=== PATIENT | male | born 1950 | race Caucasian/White ===

== ENCOUNTER 2019-10-11 13:37 | Outpatient (CLI) | payer MEDICARE, SELFPAY ==
--- NOTE | 2019-10-11 14:11 | CT_ITS ---
WS: [id number] CT NECK WITH CONTRAST HISTORY: CERVICAL Lymphadenopathy, difficulty Breathing, change IN VOICE. TECHNIQUE: Contiguous 5 mm axial images are performed through the neck with intravenous contrast. Sag ittal and coronal reformats are also submitted. All CT scans at [facility] use at least o ne of these dose optimization techniques: automated exposure control; mA and/or kV adjustment per pat ient size (includes targeted exams where dose is matched to clinical indication); or iterative recons truction. CONTRAST: CONTRAST: Omnipaque 300; 95 mL IV. DLP: 2938.79 mGycm COMPARISON: None available. Large soft tissue mass with enhancement beginning in the posterior RIGHT tongue base and extending ov er a length of 7.7 cm to the false vocal cord and aryepiglottic fold. Soft tissue mass measures 7.7 c m in length with a maximum anterior posterior diameter of 3.6 cm in transverse diameter of 2.8 cm. Ma ss extends into the LEFT supraglottic airway and the larynx. Mass extends anteriorly into the preepig lottic space and just to the LEFT of midline. Mass extends into the RIGHT piriform sinus and the fals e and true vocal cord on the RIGHT. Approximately 50% narrowing of the airway at the level of the epi glottis. No definite invasion into the cricoid or hyoid bone. Largest lymph node is hyperemic in the RIGHT jugulodigastric region measuring 10 mm in short axis di ameter. Loss of the normal fatty hilum. There are additional level 2 and level 3 lymph nodes which ar e not significantly enlarged although the shape is more rounded than typically noted. No LEFT cervica l chain lymph nodes. Visualized portions of the skull base demonstrate no abnormalities. Orbits and globes are within norm al limits. No soft tissue masses. Mild atherosclerosis of the intracranial carotid arteries. Visualized paranasal sinuses and mastoid air cells are normal. Lung apices are clear. Notified Michael Dumont MD at 10/11/2019 3:15 PM. Not available but the report is made available for review. CT/CT neck w con* [id number] IMPRESSION: 1. Large enhancing mass centered in the RIGHT larynx, involving the supraglott ic and subglottic airway. Mass extends from the RIGHT tongue base over length o f 7.7 cm to the vocal cords. Mass extends across the midline into the preepiglo ttic space. Mass in its entirety measures 7.7 x 3.6 x 2.8 cm.. 2. Mild narrowing of the larynx at the level of the epiglottis. 3. RIGHT level 2 and level 3 adenopathy. Largest, most abnormal appearing lymp h node is on the RIGHT jugulodigastric region. 4. Recommend PET/CT imaging.
[2019-10-11 14:41] LABS: Blood Urea Nitrogen 6 mg/dL (8-23); Glomerular Filtration Rate 95.6 mL/min (90-130)
[2019-10-11] MEDS: iohexol 300 mg/mL 100 mL Btl IV (14:47)
== END 2019-10-11 13:38 | disposition home or self-care (01) ==
PROVIDERS: Family Provider Family Medicine; PCP Family Medicine; Visit Provider Family Medicine
DX: R06.00 Dyspnea, unspecified (principal); R49.9 Unspecified voice and resonance disorder; R59.0 Localized enlarged lymph nodes; J38.6 Stenosis of larynx
CPT/HCPCS: 70491; 82565; 84520; Q9967

== ENCOUNTER → 2019-10-12 14:45 | Outpatient (BNVA) | payer MEDICARE, SELFPAY | PROVIDERS: Family Provider Family Medicine; PCP Family Medicine; Referring Provider Family Medicine; Visit Provider Otolaryngology | DX: D37.05 Neoplasm of uncertain behavior of pharynx (principal) | CPT/HCPCS: 99205; 99214 ==

== ENCOUNTER 2019-10-17 05:51 | Day surgery (SDC) | payer MEDICARE, SELFPAY ==
[2019-10-14 12:58] VITALS: BMI 24.1
[2019-10-17] VITALS (8 sets, daily range): BP systolic 138–158; BP diastolic 72–91; PULSE 70–88; RESP 11–21; TEMP 36.2–36.7; O2SAT 96–100
--- NOTE | 2019-10-17 06:29 | P.ANESASSM_ITS ---
Pre-Anesthetic Assessment Pre-Anesthetic Assessment: Height/Weight: Height 1.83 m Weight 80.739 kg Temp Pulse Resp BP Pulse Ox 97.1 F L 77 20 H 147/76 98 10/17/19 06:19 10/17/19 06:19 10/17/19 06:19 10/17/19 06:19 10/17/19 06:19 Preop Diagnosis: neoplasm hypopharynx Proposed Procedure: Operation Date: 10/17/19 07:00 Proposed Procedures p Direct Laryngoscopy with biopsy [id number] D37.05(Not Applicable) - Marquis Macedo MD s EGD(Not Applicable) - Marquis Macedo MD s Bronchoscopy(Not Applicable) - Marquis Macedo MD s Fine Needle Biopsy right neck(Not Applicable) - Marquis Macedo MD Last intake: Intake Last Liquid Date 10/16/19 Last Liquid Time 23:45 Last Solid Date 10/16/19 Last Solid Time 16:00 Social: Social History: No alcohol and No tobacco Exam: Pre-Anes Outpt Exam: alert, oriented x 3, clear to auscultation serjio aterally and regular rate & rhythm Airway: Submandibular: WNL Cervical ROM: WNL MP: 2 Dentition: Other (poor dentation) History/ROS: No significant history except as noted Pulmonary: Pulmonary: None reported CV/HEM: CV/HEM: Afib (well controlled) : : None reported Hepatic: Hepatic: None reported GI: GI: None reported Metabolic: Metabolic: None reported Musc/skel: Musc/skel: OA/DJD Neuropsych: Neuropsych: None reported Anesthetic Plan: ASA status: 2 Anesthesia: Anesthesia Evaluation and General Risk of > 500 ml blood loss (7ml/kg in children): No PFSH Anesthesia PFSH: Medical History (Updated 10/17/19 @ 06:30 by Bruce Infante MD) History of atrial fibrillation Neoplasm of uncertain behavior of hypopharynx Surgical History (Updated 10/17/19 @ 06:30 by Bruce Infante MD) H/O knee surgery H/O shoulder surgery Family History Other Cancer Social History Smoking and tobacco status: never smoked Alcohol intake: current Alcohol intake frequency: few times a week Data Anesthesia Cardiac Studies: No Data to Display
--- NOTE | 2019-10-17 06:49 | PM.HPUD ---
H&P update H&P Update: DATE OF SURGERY/PROCEDURE: 10/17/19 DATE H&P PERFORMED: 10/12/19 H&P UPDATE INFORMATION: H&P completed within last 30 days and No changes to prior documentation PREOP DIAGNOSIS: neoplasm hypopharynx PLANNED PROCEDURE: Operation Date: 10/17/19 07:00 Proposed Procedures p Direct Laryngoscopy with biopsy [id number] D37.05(Not Applicable) - Marquis Macedo MD s EGD(Not Applicable) - Marquis Macedo MD s Bronchoscopy(Not Applicable) - Marquis Macedo MD s Fine Needle Biopsy right neck(Not Applicable) - Marquis Macedo MD Full H&P Perinent History: Medical/Surgical History: Medical History (Updated 10/17/19 @ 06:30 by Bruce Infante MD) History of atrial fibrillation Neoplasm of uncertain behavior of hypopharynx Family History: Family History (Updated 10/12/19 @ 15:17 by Candice Verdugo LPN) Other Cancer Social History: Social History Smoking and tobacco status: never smoked Alcohol intake: current Alcohol intake frequency: few times a week
--- NOTE | 2019-10-17 06:51 | P.OP_ITS ---
Operative Report Date of procedure: October 17, 2019 Pre-op Diagnosis: neoplasm hypopharynx Post-op Diagnosis: pending Procedure Done: Esophagogastroduodenoscopy with biopsy distal esophagus, flexible fiberoptic bronchoscopy, MicroDirect laryngoscopy with biopsy, fine- needle aspiration right level II neck mass Pathology: Distal esophagus, right oropharynx, fine-needle aspiration right neck Surgeon: Marquis Macedo Anesthesia: General Complications: None Findings: 7 cm right oropharyngeal/hypopharyngeal mass Condition: stable Disposition: PACU Brief History: Arpan is a 69-year-old male with a two-month history of a right neck mass. I discussed the goals risks and alternatives and informed consent was obtained to proceed with surgical evaluation. Procedure: The patient was taken to the operating room and under satisfactory general endotracheal anesthesia the bronchoscope was introduced into the trachea. Right and left bronchopulmonary segments 1 through 10 were examined. No endobronchial lesions were identified. The esophagoscope was introduced into the post cricoid area. The esophagus stomach and duodenum were examined. A 1.5 cm erosion was present at the GE junction. The remainder of the exam was unremarkable. The laryngoscope was used to examine the oropharynx hypopharynx and larynx. The exam was significant for a exophytic right oropharynx/hypopharyngeal mass. This extended to the base of tongue lateral pharyngeal wall and tonsil. It measured approximately 1 cm in greatest dimension. 4 biopsy specimens were taken. Hemostasis was obtained with cocaine pledgets. A fine-needle aspiration was performed from the right neck. Multiple passes were placed into the right neck mass with an 18-gauge needle after prepping the neck. The specimen was placed in CytoLyt and the syringe was capped and sent separately. No complications occurred. All mucosal surfaces were reinspected prior to discontinuation of the procedure. No significant bleeding was noted. The procedure was terminated and the patient was extubated and taken to the recovery room where he was observed. During observation postoperative care instructions and counseling were given. Once the patient verbalized understanding of all instructions and once the patient met discharge criteria he was discharged in satisfactory and stable condition. He was placed on a proton pump inhibitor secondary to the findings in the distal esophagus.
[2019-10-17] MEDS: sodium chloride 0.9% 1,000 ML 30 ML IV (06:56)
[2019-10-17] MEDS: ondansetron 2 mg/ML SDV 2 mL 4 MG IVP (08:00)
--- NOTE | 2019-10-17 08:05 | SUR.PHASEI ---
0750 PT TO PACU SLEEPY BUT AWAKES TO VOICE FOLLOWS COMMANDS, VSS GOOD RESP EFFORT NASAL TRUMPHET IN PLACE 0800 PT MORE ALERT COUGHING LG AMT THICK BLOOD TINGED SPUTUM, SX WITH YANKER, PT ALERT ENOUGH TO USE YANKER PER SELF FOR FREQUENT LARGE AMTS OF THICH SPUTUM. PT ON RA FOR COMFORT UP IN BED AT 45 DEGREES NASAL TRUMPHET REMOVED.
[2019-10-17] MEDS: cetylpyridinium Lozenge 1 EACH MUCOUS MEM (08:25)
== END 2019-10-17 09:13 | disposition home or self-care (01) ==
PROVIDERS: Family Provider Family Medicine; PCP Family Medicine; Visit Provider Otolaryngology
PROC: 0CJS8ZZ Inspection of Larynx, Via Natural or Artificial Opening Endoscopic (ICD-10-PCS; CPT 10021; principal; 2019-10-17 07:00)
PROC: 0DJ08ZZ Inspection of Upper Intestinal Tract, Via Natural or Artificial Opening Endoscopic (ICD-10-PCS; CPT 43235; 2019-10-17 07:00)
PROC: 0BJ08ZZ Inspection of Tracheobronchial Tree, Via Natural or Artificial Opening Endoscopic (ICD-10-PCS; CPT 31622; 2019-10-17 07:00)
PROC: (CPT 10021; 2019-10-17 07:00)
DX: C13.9 Malignant neoplasm of hypopharynx, unspecified (principal); I48.91 Unspecified atrial fibrillation; M19.90 Unspecified osteoarthritis, unspecified site
CPT/HCPCS: 10021; 31536; 31622; 43239; 12345; 88112; 88173; 88305; J0330; J1100; J2001; J2405; J2704; J3010; J7030

== ENCOUNTER → 2019-10-24 08:41 | Outpatient (BNVA) | payer MEDICARE, SELFPAY | PROVIDERS: Family Provider Family Medicine; PCP Family Medicine; Visit Provider Otolaryngology | DX: Z48.89 Encounter for other specified surgical aftercare (principal); D37.05 Neoplasm of uncertain behavior of pharynx | CPT/HCPCS: 99213; 99214 ==

== ENCOUNTER 2020-02-22 08:54 | Outpatient (RCR) | payer MEDICARE, SELFPAY | END 2020-02-28 23:59 | disposition home or self-care (01) | LOC: SST 08:54 | PROVIDERS: PCP Family Medicine; Referring Provider Nurse Practitioner Family; Visit Provider Nurse Practitioner Family | DX: C01 Malignant neoplasm of base of tongue (principal); R13.10 Dysphagia, unspecified | CPT/HCPCS: 92526; 92610 ==

== ENCOUNTER 2020-02-29 06:00 | Outpatient (RCR) | payer MEDICARE, SELFPAY | END 2020-03-30 23:59 | disposition home or self-care (01) | LOC: SST 06:00 | PROVIDERS: PCP Family Medicine; Referring Provider Nurse Practitioner Family; Visit Provider Family Medicine | DX: C01 Malignant neoplasm of base of tongue (principal); R13.10 Dysphagia, unspecified | CPT/HCPCS: 92526 ==

== ENCOUNTER 2020-03-20 13:19 | Outpatient (CLI) | payer MEDICARE, SELFPAY ==
--- NOTE | 2020-03-20 13:26 | CT_ITS ---
WS: [id number] CT ABDOMEN AND PELVIS WITH CONTRAST HISTORY: ABDOMINAL PAIN, RLQ TECHNIQUE: Imaging performed of the abdomen and pelvis with IV contrast. Single phase imaging of the abdomen. Coronal and sagittal reformats are submitted. All CT scans at [facility] use at least one of these dose optimization techniques: automated exposure control; mA and/or kV adjustment per patient size (includes targeted exams where dose is matched to clinical indication); or iterativ e reconstruction. IV CONTRAST: Omnipaque 300; 95 mL IV. Oral contrast: Yes. DLP: 567.06 mGy.cm COMPARISON: None available. Lower thorax: Linear scar at the LEFT lung base. Chronic emphysema. Heart is normal size. No hiatal h ernia. Liver/biliary system: There are a few scattered 2 to 3 mm low-attenuation lesions in the liver which are too small to characterize. No bile duct dilatation. Gallbladder: Normal. No gallstones or wall thickening. No pericholecystic fluid. Pancreas: Normal. Spleen: Normal. Adrenal glands: Normal. Right kidney: Normal. Left kidney: Normal. Aorta: Normal. Lymphadenopathy: None. Free fluid: None. GI tract: The appendix is normal. There is increase fluid in the mid to distal small bowel and also t hrough the ascending colon and transverse colon. No obstructing lesions are identified. PEG tube is n ormally positioned within the stomach. Abdominal wall: PEG tube insertion site is normal. Pelvis: No free fluid. Well-distended urinary bladder. Bones: Mild degenerative changes at the hip joints. No osteoblastic or osteolytic disease. Notified Michael Dumont MD at 03/20/2020 3:[address]/CT abdomen pelvis w con* [id number] IMPRESSION: 1. Normal appendix. 2. Increase fluid distention of the mid to distal small bowel, ascending and t ransverse colon. No site of obstruction is identified. 3. There are several, too small to characterize hypodensities throughout the l iver. These may be benign cysts or very early metastatic disease..
[2020-03-20 14:36] LABS: Blood Urea Nitrogen 17 mg/dL (8-23); Glomerular Filtration Rate 83.4 mL/min (90-130)
[2020-03-20] MEDS: iohexol 300 mg/mL 100 mL Btl IV (14:52)
== END 2020-03-20 13:20 | disposition home or self-care (01) ==
PROVIDERS: PCP Family Medicine; Visit Provider Family Medicine
DX: R10.31 Right lower quadrant pain (principal)
CPT/HCPCS: 36415; 74177; 82565; 84520

== ENCOUNTER 2020-05-01 06:00 | Outpatient (RCR) | payer MEDICARE, SELFPAY | END 2020-05-30 23:59 | disposition home or self-care (01) | LOC: SST 06:00 | PROVIDERS: PCP Family Medicine; Visit Provider Family Medicine | DX: R13.10 Dysphagia, unspecified (principal) | CPT/HCPCS: 92526 ==

== ENCOUNTER → 2020-06-07 09:13 | Outpatient (BNVA) | payer MEDICARE, SELFPAY | PROVIDERS: PCP Family Medicine; Visit Provider Urology | DX: Z12.5 Encounter for screening for malignant neoplasm of prostate (principal); N40.1 Benign prostatic hyperplasia with lower urinary tract symptoms; N13.8 Other obstructive and reflux uropathy; R33.9 Retention of urine, unspecified | CPT/HCPCS: 81001 ==

== ENCOUNTER 2020-06-11 16:07 | Emergency (ER) | payer MEDICARE, SELFPAY ==
[2020-06-11 16:20] VITALS: BP 118/72; PULSE 65; RESP 18; TEMP 36.7; O2SAT 98; BMI 21.7
--- NOTE | 2020-06-11 16:59 | ECG_ITS ---
[facility] Test Date: 2020-06-11 Pat Name: Arpan Pabon Department: Room: Gender: Male Client Engagement Specialist: : 1950 Requested By: Anup Francis Order Number: [id number] Mary MD: Elvira Vickers M.D. Measurements Intervals [place] Rate: 65 P: -26 ND: 170 QRS: -32 QRSD: 92 T: -10 QT: 397 QTc: 415 Interpretive Statements SINUS RHYTHM MARKED LEFT AXIS DEVIATION [QRS AXIS < -30] MINIMAL VOLTAGE CRITERIA FOR LVH, CONSIDER NORMAL VARIANT [MEETS CRITERIA IN ONE OF: R(aVL), S(V1), R(V5), R(V5/V6)+S(V1)] Compared to ECG 06/14/2019 20:30:25 Left-axis deviation now present Electronically Signed On 06-11-2020 19:41:33 CDT by Elvira Vickers M.D. [email or web address]/[id number] f
--- NOTE | 2020-06-11 16:59 | XRR_ITS ---
PROCEDURE INFORMATION: Exam: XR Chest, 1 View Exam date and time: 06/11/2020 6:12 PM Age: 69 years old Clinical indication: Chest pain; Type not specified; Prior surgery; Surgery type: Robotic bypass; Patient HX: Whole chest felt tight TECHNIQUE: Imaging protocol: XR of the chest Views: 1 view. COMPARISON: CR Chest 1 [place] [id number] 06/14/2019 7:56 PM FINDINGS: Lungs: Scattered calcified suspected granulomata. Pleural space: Unremarkable. No pleural effusion. No pneumothorax. Heart/Mediastinum: Unremarkable. No cardiomegaly. Vasculature: Graft or stent structure superimposes the upper lumbar spine at the midline of uncertain location. Bones/joints: Degenerative change of the spine. Soft tissues: Likely nipple shadows overlie the lower lungs. Intraperitoneal space: Rounded radiopaque structure superimposes the left upper quadrant. XR/XR chest 1V portable [id number] IMPRESSION: No acute cardiopulmonary process.
[2020-06-11 18:08] LABS: Basophils % 0.5 %; Eosinophils # 0.1 10^3/uL (0.0-0.8); Eosinophils % 2.5 %; Hematocrit 31.5 % (42.0-52.0); Hemoglobin 10.7 g/dL (11.7-16.6); Lymphocytes # 0.5 10^3/uL (0.8-4.8); Lymphocytes % 11.6 %; Mean Corpuscular Hemoglobin 32.3 pg (28.0-34.0); Mean Corpuscular Volume 95.2 fL (80-94); Mean Platelet Volume 9.6 fL (7.4-10.4); Monocytes # 0.4 10^3/uL (0.2-0.9); Monocytes % 9.6 %; Neutrophils # 3.32 10^3/uL (1.8-7.7); Neutrophils % 75.6 %; Nucleated Red Blood Cells % 0 %; Platelet Count 232 10^3/cmm (130-400); Red Blood Count 3.31 10^6/uL (4.1-5.3); Red Cell Distribution Width 11.6 % (12.1-15.1); White Blood Count 4.4 10^3/uL (4.0-10.0)
--- NOTE | 2020-06-11 18:29 | ED_ITS ---
HPI - Chest Pain General: Chief Complaint: Chest Pain Stated Complaint: chest pain Time Seen by Provider: 06/11/20 18:29 History of Present Illness: HPI narrative: Patient is a 69-year-old male who comes in the ED with epigastic/abdominal pain. Patient has a past medical history of pancreatic cancer and currently has a G tube. Patient says epigastric pain started around 10:00 today. Started approximately 2 hours after he had a feeding through his G-tube and he was up and moving around when it occurred. He states that it has since resolved but he still has abdominal pain that is related to his pancreatic cancer. Patient currently takes hydrocodone and Dilaudid for pain at home. Associated symptoms: Reports abdominal pain; Deny dyspnea, fever(s), nausea, palpitations or vomiting Review of Systems Const: Denies: fever(s), chills or fatigue Eyes: Denies: change in vision or eye discomfort ENMT: Denies: throat pain, odynophagia, nasal discharge or nasal congestion Card: Reports: chest pain (epigastric pain); Denies: palpitations, edema, swelling of feet/ankles, dyspnea on exertion or orthopnea Resp: Denies: dyspnea, productive cough or non-productive cough GI: Reports: abdominal pain; Denies: nausea, vomiting, diarrhea, constipation or hematochezia : Denies: flank pain, difficulty urinating, dysuria or hematuria Musc: Denies: neck pain, back pain or extremity swelling Skin/Breast: Denies: rash or new lesions Neuro: Denies: headache(s), numbness in extremities or weakness in extremities [facility] ED PFSH: Medical History BPH loc w urin obs/LUTS History of atrial fibrillation Incomplete bladder emptying Neoplasm of uncertain behavior of hypopharynx Pancreatic cancer Surgical History H/O knee surgery H/O shoulder surgery Family History Father Hypertension Dementia Mother , AT AGE 89 Cancer BREAST Social History Smoking and tobacco status: never smoked Alcohol intake: never Adopted: No Caregiver/support person: No Lives independently: Yes Marital status: Current occupational status: retired and disabled History of recent travel: No Physical Exam Const: COMMON NORMALS: patient oriented x3 and alert GENERAL APPEARANCE: cooperative; not comfortable (pt appears uncomfortable and is hunched over holding abdomen in pain) HENMT: COMMON NORMALS: normocephalic HEAD & SCALP: normocephalic MOUTH: Normal oral and palatal mucosa present THROAT: posterior oropharynx normal and uvula midline Eye: COMMON NORMALS: Equal, round and reactive pupils present PUPIL: Yes Equal, round and reactive pupils present Neck/C-Spine: COMMON NORMALS: supple GENERAL: Yes normal visual inspection Resp: COMMON NORMALS: normal respiratory effort, No retractions, No use of accessory muscles and clear to auscultation bilaterally AUSCULTATION: clear to auscultation bilaterally Cardio: COMMON NORMALS: regular rate, regular rhythm, S1 normal heart sound present, S2 normal heart sound present, No gallops present (Cardio), No clicks present (Cardio), No murmurs present (Cardio) and Peripheral pulses 2+ throughout RATE: regular rate RHYTHM: regular rhythm HEART SOUNDS: S1 normal heart sound present and S2 normal heart sound present PERIPHERAL PULSES: Peripheral pulses 2+ throughout GI: COMMON NORMALS: Normal to inspection, nondistended, normoactive bowel sounds present, Soft to palpation and no masses PALPATION: Yes Soft to palpation and Yes Tenderness to palpation present (GI) (Central abdomen and epigastric tenderness) : COMMON NORMALS: Yes no CVA tenderness BLADDER/KIDNEY EXAM: Yes no CVA tenderness Back/Pelvis: COMMON NORMALS: no CVA tenderness Extremity: COMMON NORMALS: normal to inspection and no pedal edema Neuro: COMMON NORMALS: patient oriented x3 and moves all extremities SENSORIUM/ORIENTATION: Yes alert Skin: COMMON NORMALS: no rashes or lesions noted GENERAL SKIN EXAM: no rashes or lesions noted and dry skin Course Reevaluation(s): Reevaluation #1: Patient's pain is greatly improved after Dilaudid. I told patient about his lab results and he is ready to be discharged. Time: 19:20 Vital Signs: Vital signs: Vital Signs Temperature 98.1 F 06/11/20 16:20 Pulse Rate 65 06/11/20 16:20 Respiratory Rate 16 06/11/20 19:10 Blood Pressure 132/74 06/11/20 19:10 Pulse Oximetry 96 10/12/20 19:10 MDM - Chest Pain MDM Narrative: Medical decision making narrative: Patient is a 69-year-old male who comes to the ED with epigastric/chest pain and abdominal pain. Patient has a past medical history of pancreatic cancer and abdominal pain is due to that. He is currently being treated for pancreatic cancer. By the time patient came back to ED room his chest pain had resolved but he was still having abdominal pain. Hemoglobin 10.7 and rest of CBC and CMP was unremarkable. EKG showed normal sinus rhythm with no ST segment elevation or depression seen and troponin negative. Chest x-ray showed no acute findings. Patient was given some Dilaudid and abdominal pain improved. He says he has some pain meds at home to help with his abdominal pain from pancreatic cancer. Patient diagnosed with noncardiac chest pain, anemia and told to follow-up with his PCP in the next couple days to recheck hemoglobin lab. Patient understood and agreed with plan. Lab Data: Attestation: I reviewed the patient's lab results. Labs: Lab Results 06/11/20 06/11/20 06/11/20 Range/Units 17:00 17:00 17:00 WBC 4.4 (4.0-10.0) 10^3/ uL RBC 3.31 L (4.1-5.3) 10^6/u L Hgb 10.7 L (11.7-16.6) g/dL Hct 31.5 L (42.0-52.0) % MCV 95.2 H (80-94) fL MCH 32.3 (28.0-34.0) pg MCHC 34.0 (30.0-36.0) g/dL RDW 11.6 L (12.1-15.1) % Plt Count 232 (130-400) 10^3/c mm MPV 9.6 (7.4-10.4) fL Neut % (Auto) 75.6 % Lymph % (Auto) 11.6 % [place] % (Auto) 9.6 % Eos % (Auto) 2.5 % Baso % (Auto) 0.5 % Neut # (Auto) 3.32 (1.8-7.7) 10^3/u L Lymph # (Auto) 0.5 L (0.8-4.8) 10^3/u L [place] # (Auto) 0.4 (0.2-0.9) 10^3/u L Eos # (Auto) 0.1 (0.0-0.8) 10^3/u L Baso # (Auto) 0.0 (0.0-0.1) 10^3/u L Nucleated RBC % (a uto) 0 % Nucleated RBCs # 0.0 /100WBC Sodium 134 L (136-145) mmol/L Potassium 4.8 (3.5-5.1) mmol/L Chloride 98 (98-107) mmol/L Carbon Dioxide 24 (22-29) mmol/L Anion Gap 16.8 (5-19) BUN 19 (8-23) mg/dL Creatinine 0.8 (0.7-1.2) mg/dL GFR Calculation 95.6 (90-130) mL/min Glucose 117 H (65-115) mg/dL Calculated Osmolal ity 281 L (285-295) mOsm/k g Calcium 9.3 (8.5-10.5) mg/dL Total Bilirubin 0.5 (0.15-1.2) mg/dL AST 29 (0-40) U/L ALT 46 H (0-41) U/L Alkaline Phosphata se 147 H (40-130) IU/L Troponin T Baselin e 9 (0-15) ng/L Total Protein 6.3 L (6.6-8.7) g/dL Albumin 4.1 (3.5-5.2) g/dL Globulin 2.2 (1.3-4.6) g/dL Imaging Data^: CXR: Attestation: I personally reviewed and interpreted this imaging study as follows: My impression: Chest x-ray showed no acute findings. EKG Data^: EKG 1: Attestation: I personally reviewed and interpreted this EKG as follows: EKG interpretation date: 06/11/20 Interpretation: Sinus rhythm, 65 bpm, no ST segment elevation or depression seen. Discharge Plan Discharge Patient Disposition: Home Clinical Impression: Chest pain, non-cardiac Anemia Qualifiers: Anemia type: unspecified type Qualified Code(s): D64.9 - Anemia, unspecified Condition: Stable Prescriptions: No Action hydromorphone [Dilaudid] 2 mg tablet 2 mg PO Q4H RF: 0 hydrocodone-acetaminophen 7.5-325 mg tablet 1 tab PO Q8H PRNRF: 0 doxazosin 4 mg tablet 4 mg PO DAILY Qty: 30 RF: 12 Discharge Orders: Discharge Order (Routine); Ordered 06/11/20 Ordered By: Michael Obando Referrals: Michael Dumont MD [Primary Care Provider] - Discharge Diet: Regular Discharge Activity: Increase activity as tolerated Patient Instructions: Noncardiac Chest Pain (ED) Activity Restrictions/Additional Instructions: Follow-up with medical provider as directed in 3-5 days to recheck hemoglobin. Continue taking medications as prescribed. Return to the ER or your medical provider if condition worsens. Please read and understand discharge instructions. If any questions, please ask. Discharge Date/Time: 06/11/20 19:31 Coding Level of Care Code ED Commissary Manager for [place] Fwd Exam Comprehensive
[2020-06-11 18:31] LABS: Troponin(5th) Baseline 9 ng/L (0-15)
[2020-06-11 18:45] LABS: Alanine Aminotransferase 46 U/L (0-41); Albumin Level 4.1 g/dL (3.5-5.2); Alkaline Phosphatase 147 IU/L (40-130); Anion Gap 16.8 (5-19); Aspartate Amino Transferase 29 U/L (0-40); Blood Urea Nitrogen 19 mg/dL (8-23); Calcium 9.3 mg/dL (8.5-10.5); Carbon Dioxide 24 mmol/L (22-29); Chloride 98 mmol/L (98-107); Globulin 2.2 g/dL (1.3-4.6); Glomerular Filtration Rate 95.6 mL/min (90-130); Glucose 117 mg/dL (65-115); Osmolality Calculated 281 mOsm/kg (285-295); Potassium 4.8 mmol/L (3.5-5.1); Sodium 134 mmol/L (136-145); Total Bilirubin 0.5 mg/dL (0.15-1.2); Total Protein 6.3 g/dL (6.6-8.7)
[2020-06-11 18:49] VITALS: RESP 18; O2SAT 97
[2020-06-11] MEDS: HYDROmorphone 1 mg/mL INJ 1 mL IM (18:49)
--- NOTE | 2020-06-11 18:59 | ECG_ITS ---
[facility] Test Date: 2020-06-11 Pat Name: Arpan Pabon Department: Room: Gender: Male Java Flex Developer: : 1950 Requested By: Anup Francis Order Number: [id number] Mary MD: Elvira Vickers M.D. Measurements Intervals [employer] Rate: 54 P: 66 [place]: 172 QRS: 88 QRSD: 93 T: 74 QT: 421 QTc: 401 Interpretive Statements SINUS BRADYCARDIA Compared to ECG 06/11/2020 16:07:54 Sinus rhythm no longer present Left-axis deviation no longer present Electronically Signed On 06-11-2020 20:27:44 CDT by Elvira Vickers M.D. [id number]
[2020-06-11 19:10] VITALS: BP 132/74; RESP 16; O2SAT 96
== END 2020-06-11 19:31 | disposition home or self-care (01) ==
PROVIDERS: Family Medicine; Emergency Provider Physician Assistant; PCP Family Medicine
DX: R07.89 Other chest pain (principal); D64.9 Anemia, unspecified; I48.91 Unspecified atrial fibrillation; Z85.07 Personal history of malignant neoplasm of pancreas; Z85.819 Personal history of malignant neoplasm of unspecified site of lip, oral cavity, and pharynx
CPT/HCPCS: 12345; 71045; 80053; 84484; 85025; 93005; 96372; 99281; 99283; J1170

== ENCOUNTER 2020-06-29 10:18 | Outpatient (CLI) | payer MEDICARE, SELFPAY ==
[2020-06-29 10:55] LABS: Basophils % 0.2 %; Eosinophils # 0.1 10^3/uL (0.0-0.8); Eosinophils % 1.4 %; Hematocrit 27.8 % (42.0-52.0); Hemoglobin 9.2 g/dL (11.7-16.6); Lymphocytes # 0.2 10^3/uL (0.8-4.8); Lymphocytes % 4.1 %; Mean Corpuscular HGB Conc 33.1 g/dL (30.0-36.0); Mean Corpuscular Hemoglobin 31.7 pg (28.0-34.0); Mean Corpuscular Volume 95.9 fL (80-94); Mean Platelet Volume 9.3 fL (7.4-10.4); Monocytes # 0.4 10^3/uL (0.2-0.9); Monocytes % 9.8 %; Neutrophils # 3.54 10^3/uL (1.8-7.7); Neutrophils % 84.5 %; Nucleated Red Blood Cells % 0 %; Platelet Count 109 10^3/cmm (130-400); Red Cell Distribution Width 11.8 % (12.1-15.1); White Blood Count 4.2 10^3/uL (4.0-10.0)
== END 2020-06-29 10:19 | disposition home or self-care (01) ==
LOC: LAB 10:23
PROVIDERS: PCP Family Medicine; Visit Provider Nurse Practitioner
DX: D70.1 Agranulocytosis secondary to cancer chemotherapy (principal); T45.1X5A Adverse effect of antineoplastic and immunosuppressive drugs, initial encounter
CPT/HCPCS: 36415; 85025

== ENCOUNTER 2020-07-04 12:17 | Emergency (ER) | payer MEDICARE, SELFPAY ==
[2020-07-04 12:24] VITALS: BP 118/71; PULSE 70; RESP 16; TEMP 36.5; O2SAT 99; BMI 22.1
--- NOTE | 2020-07-04 12:44 | W.ED.GENADLT ---
Documented by User: EDDIE Sandoval 07/04/20 14:48 HPI - General Adult General: Chief complaint: General Medical Stated complaint: FEEDING TUBE FELL OUT Time Seen by Provider: 07/04/20 12:40 History of Present Illness: HPI narrative: Patient is a 70-year-old male comes to the ED because feeding tube. Patient has past medical history of pancreatic cancer and is currently having and treated with chemo. He says around 10:00 this morning his PEG tube fell out. Patient brought in PEG tube to the ED. patient has chronic abdominal pain due to cancer. He currently rates it a 9 out of 10. He is also complaining of having some abdominal pain that is chronic and due to his cancer. Associated symptoms: Deny chest pain, dyspnea, headache(s), nausea, rash, palpitations or vomiting Review of Systems Const: Denies: fever(s), chills or fatigue Eyes: Denies: change in vision or eye discomfort ENMT: Denies: throat pain, odynophagia, nasal discharge or nasal congestion Card: Denies: chest pain, palpitations, edema, swelling of feet/ankles, dyspnea on exertion or orthopnea Resp: Denies: dyspnea, productive cough or non-productive cough GI: Reports: abdominal pain (Chronic abdominal pain due to pancreatic cancer diagnosis.); Denies: nausea, vomiting, diarrhea, constipation or hematochezia : Denies: flank pain, difficulty urinating, dysuria or hematuria Musc: Denies: neck pain, back pain or extremity swelling Skin/Breast: Denies: rash or new lesions Neuro: Denies: headache(s), numbness in extremities or weakness in extremities PFSH ED PFSH: Medical History BPH loc w urin obs/LUTS History of atrial fibrillation Incomplete bladder emptying Neoplasm of uncertain behavior of hypopharynx Pancreatic cancer Surgical History H/O knee surgery H/O shoulder surgery Family History Father Hypertension Dementia Mother , AT AGE 89 Cancer BREAST Social History Smoking and tobacco status: never smoked Alcohol intake: never Adopted: No Caregiver/support person: No Lives independently: Yes Marital status: Current occupational status: retired and disabled History of recent travel: No Physical Exam Const: COMMON NORMALS: patient oriented x3 and alert GENERAL APPEARANCE: cooperative and comfortable HENMT: COMMON NORMALS: normocephalic HEAD & SCALP: normocephalic MOUTH: Normal oral and palatal mucosa present THROAT: posterior oropharynx normal and uvula midline Neck/C-Spine: COMMON NORMALS: supple GENERAL: Yes normal visual inspection Resp: COMMON NORMALS: normal respiratory effort, No retractions, No use of accessory muscles and clear to auscultation bilaterally AUSCULTATION: clear to auscultation bilaterally Cardio: COMMON NORMALS: regular rate, regular rhythm, S1 normal heart sound present, S2 normal heart sound present, No gallops present (Cardio), No clicks present (Cardio), No murmurs present (Cardio) and Peripheral pulses 2+ throughout RATE: regular rate RHYTHM: regular rhythm HEART SOUNDS: S1 normal heart sound present and S2 normal heart sound present PERIPHERAL PULSES: Peripheral pulses 2+ throughout GI: COMMON NORMALS: Normal to inspection, nondistended, normoactive bowel sounds present, Soft to palpation, non-tender and no masses INSPECTION: Yes GI tube present (PEG tube opening present-PEG tube is completely removed. Stoma area has no erythema, warmth or purulent drainage. No signs of infection.) PALPATION: Yes Soft to palpation : COMMON NORMALS: Yes no CVA tenderness BLADDER/KIDNEY EXAM: Yes no CVA tenderness Back/Pelvis: COMMON NORMALS: no CVA tenderness Neuro: COMMON NORMALS: patient oriented x3 and moves all extremities SENSORIUM/ORIENTATION: Yes alert Skin: NARRATIVE SKIN EXAM: Stoma for PEG tube was placed was still open and there is no erythema warmth or drainage seen. No concern of cellulitis on exam GENERAL SKIN EXAM: dry skin Procedures Feeding Tube Replacement Type of Tube: gastrostomy Insertion Site Prior to Procedure: clean Tube Used for Reinsertion: other Divehi Tube Size (F): 18 Balloon size (mL): 8 Verification of Placement: KUB and gastrografin injection Tube Secured by: other Patient Tolerated Procedure: well Additional Comments: PEG tube was placed by Dr. Mckeon. Course ED course: Dr. Mckeon also saw the patient and she was the one who placed the new PEG tube. Vital Signs: Vital signs: Vital Signs Temperature 97.7 F 07/04/20 12:24 Pulse Rate 59 L 07/04/20 14:58 Respiratory Rate 18 07/04/20 14:58 Blood Pressure 125/71 07/04/20 14:58 Pulse Oximetry 100 07/04/20 14:58 MDM - General Adult MDM Narrative: Medical decision making narrative: Patient is a 70-year-old male comes to the ED because his PEG tube fell out. Performed initial history and physical exam and then brought in Dr. Mckeon to help place PEG tube. KUB with Gastrografin was performed after new PEG tube was placed by Dr. Mckeon. KUB showed that PEG tube was placed correctly. Patient discharged and told to follow-up at next scheduled appointment with provider. Return to ED precautions given. Patient understood agree with plan. Imaging Data^: KUB: Attestation: I personally reviewed and interpreted this imaging study as follows: Radiologist's impression: [place] [address] XRay Report Signed Patient: Arpan Pabon Unit #: [id number] : 1950 Age/Sex: 70 / M ADM Date: 07/04/20 Loc: ER Room/Bed: Attending Dr: Ordering Provider/Ordering MD: Michael Obando Date of Service: 07/04/20 Procedure(s): XR KUB portable [id number] Accession Number(s): [id number] Report Number: [id number] WS: [id number] XR KUB portable [id number] REASON FOR EXAM: PEG tube placement FINDINGS: Bowel gas pattern is unremarkable. There is a vertically oriented stent overlying the upper lumbar spine just to the right of midline. This stent has been placed since the previous CT scan of 03/01. Contrast injected through the gastrostomy tube outlines gastric folds in the body and fundus of the stomach indicating a gastrostomy tube is in place. There is no free air. No significant calcification is seen. No mass is identified. XR/XR KUB portable [id number] IMPRESSION: Gastrostomy tube is positioned within the stomach as confirmed with the injection of water-soluble contrast through the gastrostomy tube. Since the CT scan of 03/20/2020 a stent has been placed. The appearance is that of a Wallstent used for biliary obstruction. The CT scan at that time did not demonstrate dilated bile ducts however there is a strong suspicion for pancreatic carcinoma which may have obstructive the biliary tract in the interim. Correlation with previous history to be made. Dictated By: Patricio Klein Jr, MD Signed By: Patricio Klein Jr, MD Signed Date/Time: 07/04/20 1437 DD/ 1416 Discharge Plan Discharge Patient Disposition: Home Clinical Impression: Encounter for feeding tube placement Condition: Stable Prescriptions: No Action hydromorphone [Dilaudid] 2 mg tablet 2 mg PO Q4H RF: 0 hydrocodone-acetaminophen 7.5-325 mg tablet 1 tab PO Q8H PRNRF: 0 doxazosin 4 mg tablet 4 mg PO DAILY Qty: 30 RF: 12 Discharge Orders: Discharge Order (Routine); Ordered 07/04/20 Ordered By: Michael Obando Referrals: Michael Dumont MD [Primary Care Provider] - Discharge Diet: As Directed Discharge Activity: Increase activity as tolerated Patient Instructions: How to Use and Care for Your PEG Tube (ED) Activity Restrictions/Additional Instructions: Follow-up with medical provider as directed. Continue taking all home medications as previously prescribed. Return to the ER or your medical provider if condition worsens. Please read and understand discharge instructions. If any questions, please ask. Discharge Date/Time: 07/04/20 14:59 Coding Level of Care Code ED Clinical Rehabilitation Liaison for [facility] Fwd Exam Comprehensive Documented by User: Lesley Mckeon MD 07/05/20 06:28 HPI - General Adult General: Chief complaint: General Medical Stated complaint: FEEDING TUBE FELL OUT Time Seen by Provider: 07/04/20 12:40 PFSH ED PFSH: Medical History BPH loc w urin obs/LUTS History of atrial fibrillation Incomplete bladder emptying Neoplasm of uncertain behavior of hypopharynx Pancreatic cancer Surgical History H/O knee surgery H/O shoulder surgery Family History Father Hypertension Dementia Mother , AT AGE 89 Cancer BREAST Social History Smoking and tobacco status: never smoked Alcohol intake: never Adopted: No Caregiver/support person: No Lives independently: Yes Marital status: Current occupational status: retired and disabled History of recent travel: No Course ED course: Stave Saw Operator EDDIE Sandoval in the care of this patient. The patient has had a PEG tube for about 6 months. He does bolus feedings. We replaced the tube which had fallen out spontaneously today. He had a [address] and we replaced it with an 18. After the tube was in a drained a significant amount of greenish, granular appearing fluid. I would estimate about 200 mL came out. The patient says that he has had significant bloating and discomfort after each feeding and I encouraged him to talk to his doctors at [facility] about that. He may need to have his feedings adjusted or there may be a reason that he is having trouble with the feeds going through. Vital Signs: Vital signs: Vital Signs Temperature 97.7 F 07/04/20 12:24 Pulse Rate 59 L 07/04/20 14:58 Respiratory Rate 18 07/04/20 14:58 Blood Pressure 125/71 07/04/20 14:58 Pulse Oximetry 100 07/04/20 14:58 Discharge Plan Discharge Patient Disposition: Home Clinical Impression: Encounter for feeding tube placement Condition: Stable Prescriptions: No Action hydromorphone [Dilaudid] 2 mg tablet 2 mg PO Q4H RF: 0 hydrocodone-acetaminophen 7.5-325 mg tablet 1 tab PO Q8H PRNRF: 0 doxazosin 4 mg tablet 4 mg PO DAILY Qty: 30 RF: 12 Discharge Orders: Discharge Order (Routine); Ordered 07/04/20 Ordered By: Michael Obando Referrals: Michael Dumont MD [Primary Care Provider] - Discharge Diet: As Directed Discharge Activity: Increase activity as tolerated Patient Instructions: How to Use and Care for Your PEG Tube (ED) Activity Restrictions/Additional Instructions: Follow-up with medical provider as directed. Continue taking all home medications as previously prescribed. Return to the ER or your medical provider if condition worsens. Please read and understand discharge instructions. If any questions, please ask. Discharge Date/Time: 07/04/20 14:59 Coding Level of Care Code ED Clinical Rehabilitation Liaison for [place] Fwd Exam Comprehensive
[2020-07-04] MEDS: sodium chloride 0.9% 1,000 ML 999 ML IV (13:16)
[2020-07-04 13:17] VITALS: RESP 18
[2020-07-04] MEDS: HYDROmorphone 1 mg/mL INJ 1 mL IVP (13:17)
[2020-07-04] MEDS: lidocaine 2% viscous 15 mL UDC 10 ML TOPICAL (13:19)
[2020-07-04] MEDS: ondansetron 2 mg/ML SDV 2 mL 4 MG IVP (13:24)
--- NOTE | 2020-07-04 13:44 | PC.NURSE ---
G-tube replaced by Dr. Mckeon.
--- NOTE | 2020-07-04 13:45 | XR_ITS ---
WS: [id number] XR KUB portable [id number] REASON FOR EXAM: PEG tube placement FINDINGS: Bowel gas pattern is unremarkable. There is a vertically oriented stent overlying the upper lumbar sp ine just to the right of midline. This stent has been placed since the previous CT scan of 03/20/2020. Contrast injected through the gastrostomy tube outlines gastric folds in the body and fundus of the s tomach indicating a gastrostomy tube is in place. There is no free air. No significant calcification is seen. No mass is identified. XR/XR KUB portable [id number] IMPRESSION: Gastrostomy tube is positioned within the stomach as confirmed with the injecti on of water-soluble contrast through the gastrostomy tube. Since the CT scan of 03/20/2020 a stent has been placed. The appearance is that of a Wallstent used for biliary obstruction. The CT scan at that time did not d emonstrate dilated bile ducts however there is a strong suspicion for pancreati c carcinoma which may have obstructive the biliary tract in the interim. Correl ation with previous history to be made.
[2020-07-04 13:49] VITALS: RESP 18
[2020-07-04] MEDS: HYDROmorphone 1 mg/mL INJ 1 mL 0.5 MG IVP (13:49)
[2020-07-04 14:58] VITALS: BP 125/71; PULSE 59; RESP 18; O2SAT 100
== END 2020-07-04 14:59 | disposition home or self-care (01) ==
PROVIDERS: Emergency Provider Physician Assistant; PCP Family Medicine
DX: Z43.1 Encounter for attention to gastrostomy (principal); I48.91 Unspecified atrial fibrillation; Z85.07 Personal history of malignant neoplasm of pancreas
CPT/HCPCS: 12345; 43762; 74018; 96361; 96374; 96375; 96376; 99282; J1170; J2405; J7030

== ENCOUNTER 2020-07-12 12:30 | Outpatient (CLI) | payer MEDICARE, SELFPAY ==
[2020-07-12 12:54] LABS: Eosinophils # 0.1 10^3/uL (0.0-0.8); Eosinophils % 3.4 %; Hematocrit 27.9 % (42.0-52.0); Hemoglobin 9.2 g/dL (11.7-16.6); Lymphocytes # 0.6 10^3/uL (0.8-4.8); Lymphocytes % 23.2 %; Mean Corpuscular Hemoglobin 31.9 pg (28.0-34.0); Mean Corpuscular Volume 96.9 fL (80-94); Mean Platelet Volume 8.6 fL (7.4-10.4); Monocytes # 0.4 10^3/uL (0.2-0.9); Monocytes % 18.1 %; Neutrophils % 54.9 %; Nucleated Red Blood Cells % 0 %; Platelet Count 185 10^3/cmm (130-400); Red Blood Count 2.88 10^6/uL (4.1-5.3); Red Cell Distribution Width 12.2 % (12.1-15.1); White Blood Count 2.4 10^3/uL (4.0-10.0)
== END 2020-07-12 12:31 | disposition home or self-care (01) ==
LOC: LAB 12:35
PROVIDERS: PCP Family Medicine; Visit Provider Nurse Practitioner
DX: C25.9 Malignant neoplasm of pancreas, unspecified (principal)
CPT/HCPCS: 85025

== ENCOUNTER 2020-07-27 11:45 | Outpatient (CLI) | payer MEDICARE, SELFPAY ==
[2020-07-27 12:09] LABS: Basophils % 0.2 %; Hematocrit 28.4 % (42.0-52.0); Hemoglobin 9.3 g/dL (11.7-16.6); Lymphocytes # 0.8 10^3/uL (0.8-4.8); Lymphocytes % 17.9 %; Mean Corpuscular HGB Conc 32.7 g/dL (30.0-36.0); Mean Corpuscular Hemoglobin 32.3 pg (28.0-34.0); Mean Corpuscular Volume 98.6 fL (80-94); Mean Platelet Volume 8.4 fL (7.4-10.4); Monocytes # 0.5 10^3/uL (0.2-0.9); Monocytes % 12.9 %; Neutrophils # 2.85 10^3/uL (1.8-7.7); Neutrophils % 67.8 %; Nucleated Red Blood Cells % 0 %; Platelet Count 143 10^3/cmm (130-400); Red Blood Count 2.88 10^6/uL (4.1-5.3); Red Cell Distribution Width 13.2 % (12.1-15.1); White Blood Count 4.2 10^3/uL (4.0-10.0)
[2020-08-09 14:02] LABS: Basophils % 0.2 %; Eosinophils # 0.1 10^3/uL (0.0-0.8); Eosinophils % 1.4 %; Hematocrit 25.6 % (42.0-52.0); Hemoglobin 8.4 g/dL (11.7-16.6); Lymphocytes # 0.5 10^3/uL (0.8-4.8); Lymphocytes % 10.3 %; Mean Corpuscular HGB Conc 32.8 g/dL (30.0-36.0); Mean Corpuscular Hemoglobin 31.7 pg (28.0-34.0); Mean Corpuscular Volume 96.6 fL (80-94); Mean Platelet Volume 8.7 fL (7.4-10.4); Monocytes # 0.6 10^3/uL (0.2-0.9); Monocytes % 12.8 %; Neutrophils % 75.1 %; Nucleated Red Blood Cells % 0 %; Platelet Count 154 10^3/cmm (130-400); Red Blood Count 2.65 10^6/uL (4.1-5.3); Red Cell Distribution Width 13.2 % (12.1-15.1); White Blood Count 4.4 10^3/uL (4.0-10.0)
[2020-08-21 13:38] LABS: Basophils % 0.3 %; Eosinophils % 1.4 %; Hematocrit 26.1 % (42.0-52.0); Hemoglobin 8.5 g/dL (11.7-16.6); Lymphocytes # 0.4 10^3/uL (0.8-4.8); Lymphocytes % 15.2 %; Mean Corpuscular HGB Conc 32.6 g/dL (30.0-36.0); Mean Corpuscular Hemoglobin 31.3 pg (28.0-34.0); Mean Platelet Volume 8.3 fL (7.4-10.4); Monocytes # 0.4 10^3/uL (0.2-0.9); Monocytes % 12.4 %; Neutrophils # 2.04 10^3/uL (1.8-7.7); Neutrophils % 70.4 %; Nucleated Red Blood Cells % 0 %; Platelet Count 169 10^3/cmm (130-400); Red Blood Count 2.72 10^6/uL (4.1-5.3); Red Cell Distribution Width 12.8 % (12.1-15.1); White Blood Count 2.9 10^3/uL (4.0-10.0)
== END 2020-07-27 11:46 | disposition home or self-care (01) ==
PROVIDERS: PCP Family Medicine; Visit Provider Internal Medicine Hematology
DX: C25.9 Malignant neoplasm of pancreas, unspecified (principal)
CPT/HCPCS: 36415; 85025

== ENCOUNTER 2020-08-09 13:33 | Outpatient (CLI) | payer MEDICARE, SELFPAY | END 2020-08-09 13:34 | disposition home or self-care (01) | LOC: LAB 13:36 | PROVIDERS: PCP Family Medicine; Visit Provider Internal Medicine Hematology | DX: C25.9 Malignant neoplasm of pancreas, unspecified (principal) | CPT/HCPCS: 36415; 85025 ==

== ENCOUNTER 2020-11-06 06:00 | Outpatient (RCR) | payer MEDICARE, SELFPAY | END 2020-11-28 23:59 | disposition home or self-care (01) | LOC: SST 06:00 | PROVIDERS: PCP Family Medicine; Referring Provider Family Medicine; Visit Provider Family Medicine | DX: C76.0 Malignant neoplasm of head, face and neck (principal) | CPT/HCPCS: 92610 ==

== ENCOUNTER 2020-11-29 06:00 | Outpatient (RCR) | payer MEDICARE, SELFPAY | END 2020-12-28 23:59 | disposition home or self-care (01) | LOC: SST 06:00 | PROVIDERS: PCP Family Medicine; Referring Provider Family Medicine; Visit Provider Family Medicine | DX: R13.10 Dysphagia, unspecified (principal); C76.0 Malignant neoplasm of head, face and neck | CPT/HCPCS: 92526 ==

== ENCOUNTER 2020-12-06 08:19 | Outpatient (CLI) | payer MEDICARE, SELFPAY ==
--- NOTE | 2020-12-06 08:25 | FL_ITS ---
WS: [id number] Modified barium swallow, 12/06/2020 Clinical Data: Other dysphagia Comparison: None. Fluoroscopy time: 1.6 minutes. Findings: The patient had good propulsion from the oral cavity and there was no penetration or aspiration. The epiglottis is thickened and show delayed clearing. There is delayed bolus movement through the pharyn x. There is coughing which occurred when the bolus left the pharynx. Patient could not swallow the th ick and paste and needed to regurgitated. There was also vallecular pooling. FL/FL barium swallow modifd [id number] Impression: Delayed bolus movement with inability to swallow thick barium paste probably as a result of patient's therapy.
== END 2020-12-06 08:20 | disposition home or self-care (01) ==
LOC: RAD 08:21
PROVIDERS: PCP Family Medicine; Visit Provider Family Medicine
DX: R13.19 Other dysphagia (principal)
CPT/HCPCS: 74230; 92611

== ENCOUNTER 2020-12-12 13:08 | Emergency (ER) | payer MEDICARE, SELFPAY ==
[2020-12-12 13:12] VITALS: PULSE 99; RESP 16; TEMP 37.2; O2SAT 98; BMI 20.9
[2020-12-12 13:38] VITALS: O2SAT 98
--- NOTE | 2020-12-12 14:01 | CTR_ITS ---
PROCEDURE INFORMATION: Exam: CTA Chest With Contrast Exam date and time: 12/12/2020 4:44 PM Age: 70 years old Clinical indication: Fever; Abdominal pain; Cough; Chest pain; Prior surgery; Surgery type: Peg tube, port; Additional info: Chest pain, cough, fever, cancer TECHNIQUE: Imaging protocol: Computed tomographic angiography of the chest with contrast. 3D rendering (Not supervised by radiologist): MIP and/or 3D reconstructed images were created by the technologist. Total images: 1207 Radiation optimization: All CT scans at this facility use at least one of these dose optimization techniques: automated exposure control; mA and/or kV adjustment per patient size (includes targeted exams where dose is matched to clinical indication); or iterative reconstruction. Contrast material: OMNI 350; Contrast volume: 95 ml; Contrast route: INTRAVENOUS (IV); COMPARISON: CR XR chest 1V portable [id number] 06/11/2020 6:07 PM RADIATION DOSE METRICS: Total DLP (mGy-cm): 1358.82 FINDINGS: Tubes, catheters and devices: Right Infusaport catheter. Pulmonary arteries: No visible evidence of pulmonary embolism/pulmonary arterial thrombus. Aorta: The thoracic aorta is nonaneurysmal. No visible intimal flap or dissection. Arteriosclerosis of mild severity. Lungs: COPD/chronic bronchitis. Calcified granulomas of antecedent disease. No visible active interstitial or alveolar airspace disease. Pleural spaces: Unremarkable. No pneumothorax. No pleural effusion. Heart: No cardiomegaly. No visible pericardial effusion. No visible significant coronary artery disease identified. Lymph nodes: No visible active mediastinal or hilar lymphadenopathy. Bones/joints: Mild scoliotic curvature. Degenerative disease and degenerative disc disease of the spine with spondylosis deformans. No visible active or acute osseous abnormality. Soft tissues: Unremarkable. IMPRESSION: No visible evidence of pulmonary embolism/pulmonary arterial thrombus. PROCEDURE INFORMATION: Exam: CT Abdomen And Pelvis With Contrast Exam date and time: 12/12/2020 4:44 PM Age: 70 years old Clinical indication: Fever; Abdominal pain; Cough; Chest pain; Prior surgery; Surgery type: Peg tube, port; Additional info: Chest pain, cough, fever, cancer TECHNIQUE: Imaging protocol: Computed tomography of the abdomen and pelvis with contrast. Radiation optimization: All CT scans at this facility use at least one of these dose optimization techniques: automated exposure control; mA and/or kV adjustment per patient size (includes targeted exams where dose is matched to clinical indication); or iterative reconstruction. Contrast material: OMNI 350; Contrast volume: 95 ml; Contrast route: INTRAVENOUS (IV); COMPARISON: 1. CR XR chest 1V portable [id number] 06/11/2020 6:[address] abdomen pelvis w con* [id number] 03/20/2020 2:43:36 PM RADIATION DOSE METRICS: Total DLP (mGy-cm): 1358.82 FINDINGS: Tubes, catheters and devices: PEG tube. Liver: No visible hepatic mass or cystic structure. Minimal periportal edema. Mild intrahepatic biliary ectasia left hepatic lobe. Gallbladder and bile ducts: Enlarged hydropic gallbladder. No gallbladder wall thickening. No visible cholelithiasis. Tiny amount of pericholecystic fluid. Common bile duct stent. Pancreas: Suspected cancer of the pancreatic head. Tissue margins are ambiguous and exact dimensions indeterminate. Marked pancreatic ductal ectasia distally measuring upwards of 10 mm. Estimated dimensions of the pancreatic head mass approximately 23 mm. Spleen: Few splenic calcifications of antecedent granulomatous disease. Tiny amount of perisplenic ascites. Adrenal glands: Adrenal glands unremarkable. Kidneys and ureters: No hydronephrosis or perinephric fluid. No visible nephrolithiasis. Stomach and bowel: Nonobstructive bowel pattern. No visible significant adynamic or reactive ileus. Appendix: The appendix is visualized and appears noninflamed. Intraperitoneal space: Mild mesenteric lymphadenitis with associated mesenteritis. Moderate diffuse mesenteric edema. Small volume intraperitoneal ascites. No visible pneumoperitoneum. Vasculature: Portal vein appears grossly patent. Findings of portal venous hypertension. The abdominal aorta is nonaneurysmal. Mild arterial sclerotic disease. Lymph nodes: Mild mesenteric lymphadenitis with associated mesenteritis. No visible retroperitoneal lymphadenopathy. Urinary bladder: Urinary bladder unremarkable. Reproductive: Prostate hypertrophy. Bones/joints: No visible active or acute osseous pathology. Soft tissues: Unremarkable. CT/CT angio chest w abd pel w con IMPRESSION: 1. No visible acute abdominal or pelvic pathologic process. 2. Pancreatic cancer as detailed in text above. 3. Small volume intraperitoneal ascites. 4. Evidence of portal venous hypertension. 5. Mild mesenteric lymphadenitis with associated mesenteritis. 6. Mesenteric edema. 7. Other nonurgent, nonemergent, chronic, postoperative, and age related findings as detailed in text above. Radiation Dose CTDIVOL = (mGy): DLP = 1358.82~1358.82 (mGy-cm)
--- NOTE | 2020-12-12 15:02 | W.ED.GENADLT ---
Documented by User: Tanisha Villanueva DO 12/12/20 17:50 HPI - General Adult General: Chief complaint: General Medical Stated complaint: cancer pt, shaking, fever Time Seen by Provider: 12/12/20 13:40 History of Present Illness: HPI narrative: 70 yo male coming from home with shaking, weakness, possible fever, RLQ pain and left mid back pain, nausea but no vomiting with a hx of pancreatic mass taking homeopathic medications. Pain in left side and back have really been ongoing progressively for about a week and this is new for him as he was doing well after he stopped doing any chemo and radiation at [place] several weeks ago. He has had a little bit of a headache denies and stiff neck denies photophobia he has a history of throat cancer as well that supposedly in remission he has a feeding tube due to his chronic difficulty swallowing from the throat cancer unknown if he has any loss of taste or smell because he uses his G-tube only. No known fevers that they are aware of he has had a little bit of centralized chest pain Review of Systems Narrative: General: denies fatigue, fever or chills, sitting in a bright lit room HEENT: denies ear pain, denies nasal congestion, denies vision changes, denies sore throat Neck: denies masses or pain sitting in a bright lit room full range of motion of his neck no rigidity Resp: denies cough, denies shortness of breath, denies pleuritic pain Cardio: denies chest pain, denies edema GI: Right lower quadrant and left upper quadrant abdominal pain, denies N/V/D, denies black/tarry or bloody stools : denies hematuria, denies dysuria Neuro: ++ headache, denies dizziness, denies motor or sensory changes denies photophobia or neck stiffness no known fevers Musculoskeletal: Denies pain is in extremities but he does have some left posterior back pain denies swelling Skin: denies rashes Psych: denies SI or HI Endocrine: denies thyroid symptoms, denies lymphadenopathy all over ROS reviewed and patient denies PFSH ED PFSH: Medical History (Updated 12/12/20 @ 18:38 by Jose Carbajal MD) BPH loc w urin obs/LUTS History of atrial fibrillation Incomplete bladder emptying Neoplasm of uncertain behavior of hypopharynx Pancreatic cancer Surgical History H/O knee surgery H/O shoulder surgery Family History Father Hypertension Dementia Mother , AT AGE 89 Cancer BREAST Social History Smoking and tobacco status: never smoked Alcohol intake: never Adopted: No Caregiver/support person: No Lives independently: Yes Marital status: Current occupational status: retired and disabled History of recent travel: No Physical Exam Narrative: EXAM NARRATIVE: General: a/o/3, no distress Head: atraumatic HEENT: normal eyes, normal conjunctiva, normal hearing, normal external nose, normal mouth, mucous membranes moist Neck: FROM, trachea midline Chest: normal expansion, no gross deformities Resp: normal speech, no retractions, no accessory muscle use, CTA bilaterally Cardio: regular rate and rhythm and no murmur, no peripheral edema, normal peripheral pulses GI: soft, flat right lower quadrant and left upper quadrant is tender, no guarding normal BS, G-tube is in place : deferred Musculoskeletal: FROM, no pain or gross deformities Neuro: a/o appropriate for age, no gross motor or sensory deficitys, CN II-XII grossly intact, normal coordination, normal speech Skin: no rashes Psych: cooperative, normal mood and effect Course Vital Signs: Vital signs: Vital Signs Temperature 98.9 F 12/12/20 13:12 Pulse Rate 69 12/12/20 19:41 Respiratory Rate 22 H 12/12/20 19:41 Blood Pressure 110/60 12/12/20 19:41 Pulse Oximetry 99 12/12/20 19:41 MDM - General Adult MDM Narrative: Medical decision making narrative: Patient is requesting that we look at his pancreas his lipase was normal I was able to obtain CT scans from 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 he also had another CT scan done on 08/14/2020 that said it was unchanged of this on Thursday process mass he has had a bile duct stent placement which was noted on that imaging Patient's had some atypical chest discomfort his EKG was in normal sinus rhythm rate 65 done [place] [address] changes or elevation They were concerned more possibly of infection or pneumonia because he had chills prior to arrival and that he just felt so weak he is having this left abdomen and back pain as well as right lower quadrant pain on exam Pt chest pain is gone but still mild headache and posterior pancreatic pain care to Dr Solomon Waller Lab Data: Labs: Lab Results 12/12/20 12/12/20 12/12/20 Range/Units 15:10 15:10 15:10 WBC 5.8 (4.0-10.0) 10^3/ uL RBC 3.19 L (4.1-5.3) 10^6/u L Hgb 10.1 L (11.7-16.6) g/dL Hct 29.9 L (42.0-52.0) % MCV 93.7 (80-94) fL MCH 31.7 (28.0-34.0) pg MCHC 33.8 (30.0-36.0) g/dL RDW 12.6 (12.1-15.1) % Plt Count 118 L (130-400) 10^3/c mm MPV 9.6 (7.4-10.4) fL Neut % (Auto) 89.9 % Lymph % (Auto) 2.2 % [place] % (Auto) 7.4 % Eos % (Auto) 0.0 % Baso % (Auto) 0.3 % Neut # (Auto) 5.25 (1.8-7.7) 10^3/u L Lymph # (Auto) 0.1 L (0.8-4.8) 10^3/u L [place] # (Auto) 0.4 (0.2-0.9) 10^3/u L Eos # (Auto) 0.0 (0.0-0.8) 10^3/u L Baso # (Auto) 0.0 (0.0-0.1) 10^3/u L Nucleated RBC % (a uto) 0 % Nucleated RBCs # 0.0 /100WBC Sodium 128 L (136-145) mmol/L Potassium 3.4 L (3.5-5.1) mmol/L Chloride 95 L (98-107) mmol/L Carbon Dioxide 24 (22-29) mmol/L Anion Gap 12.4 (5-19) BUN 15 (8-23) mg/dL Creatinine 0.6 L (0.7-1.2) mg/dL GFR Calculation Not Reportable Glucose 132 H (65-115) mg/dL Calculated Osmolal ity 269 L (285-295) mOsm/k g Calcium 8.2 L (8.5-10.5) mg/dL Total Bilirubin 1.0 (0.15-1.2) mg/dL AST 369 H (0-40) U/L ALT 287 H (0-41) U/L Alkaline Phosphata se 115 (40-130) IU/L Troponin T Gen 5 n g/L 14 (0-15) ng/L Total Protein 6.1 L (6.6-8.7) g/dL Albumin 3.9 (3.5-5.2) g/dL Globulin 2.2 (1.3-4.6) g/dL Lipase 10 L (13-60) U/L Urine Color (Yellow) Urine Appearance (CLEAR) Urine pH (5-7) Ur Specific Gravit y (1.005-1.030) Urine Protein (Negative) Urine Glucose (UA) (Normal) Urine Ketones (Negative) Urine Blood (Negative) Urine Nitrate (Negative) Urine Bilirubin (Negative) Prot Sulfosalicyli c Acd (Negative) Urine Urobilinogen (Negative) mg/dL Ur Leukocyte Shanae ase (Negative) Urine RBC (0-2) /hpf Urine WBC (0-5) /hpf Ur Squamous Epith Cells (0-5) /hpf Amorphous Sediment Urine Bacteria (NONE) /hpf SARS-CoV-2 Ag (Rap id) (Negative) 12/12/20 12/12/20 Range/Units 15:39 16:13 WBC (4.0-10.0) 10^3/ uL RBC (4.1-5.3) 10^6/u L Hgb (11.7-16.6) g/dL Hct (42.0-52.0) % MCV (80-94) fL MCH (28.0-34.0) pg MCHC (30.0-36.0) g/dL RDW (12.1-15.1) % Plt Count (130-400) 10^3/c mm MPV (7.4-10.4) fL Neut % (Auto) % Lymph % (Auto) % [place] % (Auto) % Eos % (Auto) % Baso % (Auto) % Neut # (Auto) (1.8-7.7) 10^3/u L Lymph # (Auto) (0.8-4.8) 10^3/u L [place] # (Auto) (0.2-0.9) 10^3/u L Eos # (Auto) (0.0-0.8) 10^3/u L Baso # (Auto) (0.0-0.1) 10^3/u L Nucleated RBC % (a uto) % Nucleated RBCs # /100WBC Sodium (136-145) mmol/L Potassium (3.5-5.1) mmol/L Chloride (98-107) mmol/L Carbon Dioxide (22-29) mmol/L Anion Gap (5-19) BUN (8-23) mg/dL Creatinine (0.7-1.2) mg/dL GFR Calculation Glucose (65-115) mg/dL Calculated Osmolal ity (285-295) mOsm/k g Calcium (8.5-10.5) mg/dL Total Bilirubin (0.15-1.2) mg/dL AST (0-40) U/L ALT (0-41) U/L Alkaline Phosphata se (40-130) IU/L Troponin T Gen 5 n g/L (0-15) ng/L Total Protein (6.6-8.7) g/dL Albumin (3.5-5.2) g/dL Globulin (1.3-4.6) g/dL Lipase (13-60) U/L Urine Color [place] (Yellow) Urine Appearance Clear (CLEAR) Urine pH 8 H (5-7) Ur Specific Gravit y 1.010 (1.005-1.030) Urine Protein Neg (Negative) Urine Glucose (UA) Norm (Normal) Urine Ketones Negative (Negative) Urine Blood Neg (Negative) Urine Nitrate Negative (Negative) Urine Bilirubin 1+ H (Negative) Prot Sulfosalicyli c Acd Negative (Negative) Urine Urobilinogen 4 H (Negative) mg/dL Ur Leukocyte Shanae ase Negative (Negative) Urine RBC 0-4 H (0-2) /hpf Urine WBC None (0-5) /hpf Ur Squamous Epith Cells 0-4 H (0-5) /hpf Amorphous Sediment Not Reportable Urine Bacteria Trace (NONE) /hpf SARS-CoV-2 Ag (Rap id) Negative (Negative) Discharge Plan Discharge Patient Disposition: Home Clinical Impression: Pancreatic cancer Qualifiers: Pancreatic malignancy location: head of pancreas Qualified Code(s): C25.0 - Malignant neoplasm of head of pancreas Condition: Stable Prescriptions: No Action hydromorphone [Dilaudid] 2 mg tablet 2 mg PO Q4H RF: 0 doxazosin 4 mg tablet 4 mg PO DAILY@1000 RF: 0 Discharge Orders: Discharge ED (Routine); Ordered 12/12/20 Ordered By: Jose Carbajal Referrals: Michael Dumont MD [Primary Care Provider] - 1-3 days Discharge Diet: Advance as tolerated Discharge Activity: Resume usual activity Patient Instructions: Pancreatic Cancer (GEN), Opioid Safety Coding Level of Care Code ED Panel Wirer for Chg Fwd Documented by User: Jose Carbajal MD 12/12/20 19:46 HPI - General Adult General: Chief complaint: General Medical Stated complaint: cancer pt, shaking, fever Time Seen by Provider: 12/12/20 13:40 PFSH ED PFSH: Medical History (Updated 12/12/20 @ 18:38 by Jose Carbajal MD) BPH loc w urin obs/LUTS History of atrial fibrillation Incomplete bladder emptying Neoplasm of uncertain behavior of hypopharynx Pancreatic cancer Surgical History H/O knee surgery H/O shoulder surgery Family History Father Hypertension Dementia Mother , AT AGE 89 Cancer BREAST Social History Smoking and tobacco status: never smoked Alcohol intake: never Adopted: No Caregiver/support person: No Lives independently: Yes Marital status: Current occupational status: retired and disabled History of recent travel: No Course Vital Signs: Vital signs: Vital Signs Temperature 98.9 F 12/12/20 13:12 Pulse Rate 69 12/12/20 19:41 Respiratory Rate 22 H 12/12/20 19:41 Blood Pressure 110/60 12/12/20 19:41 Pulse Oximetry 99 12/12/20 19:41 MDM - General Adult MDM Narrative: Medical decision making narrative: Arpan presents here with abdominal pain along with generalized weakness likely from his pancreatic cancer. He feels improved after IV fluids. His blood work here shows no acute findings and CT does show the pancreatic mass. I had discussed with him at length and he understands the graveness of this disease. He states that he does need a swallow study tomorrow and would like to start eating again as he feels he gets weak from just the tube feedings any missed the tube feeding today. Lab Data: Labs: Lab Results 12/12/20 12/12/20 12/12/20 Range/Units 15:10 15:10 15:10 WBC 5.8 (4.0-10.0) 10^3/ uL RBC 3.19 L (4.1-5.3) 10^6/u L Hgb 10.1 L (11.7-16.6) g/dL Hct 29.9 L (42.0-52.0) % MCV 93.7 (80-94) fL MCH 31.7 (28.0-34.0) pg MCHC 33.8 (30.0-36.0) g/dL RDW 12.6 (12.1-15.1) % Plt Count 118 L (130-400) 10^3/c mm MPV 9.6 (7.4-10.4) fL Neut % (Auto) 89.9 % Lymph % (Auto) 2.2 % [place] % (Auto) 7.4 % Eos % (Auto) 0.0 % Baso % (Auto) 0.3 % Neut # (Auto) 5.25 (1.8-7.7) 10^3/u L Lymph # (Auto) 0.1 L (0.8-4.8) 10^3/u L [place] # (Auto) 0.4 (0.2-0.9) 10^3/u L Eos # (Auto) 0.0 (0.0-0.8) 10^3/u L Baso # (Auto) 0.0 (0.0-0.1) 10^3/u L Nucleated RBC % (a uto) 0 % Nucleated RBCs # 0.0 /100WBC Sodium 128 L (136-145) mmol/L Potassium 3.4 L (3.5-5.1) mmol/L Chloride 95 L (98-107) mmol/L Carbon Dioxide 24 (22-29) mmol/L Anion Gap 12.4 (5-19) BUN 15 (8-23) mg/dL Creatinine 0.6 L (0.7-1.2) mg/dL GFR Calculation Not Reportable Glucose 132 H (65-115) mg/dL Calculated Osmolal ity 269 L (285-295) mOsm/k g Calcium 8.2 L (8.5-10.5) mg/dL Total Bilirubin 1.0 (0.15-1.2) mg/dL AST 369 H (0-40) U/L ALT 287 H (0-41) U/L Alkaline Phosphata se 115 (40-130) IU/L Troponin T Gen 5 n g/L 14 (0-15) ng/L Total Protein 6.1 L (6.6-8.7) g/dL Albumin 3.9 (3.5-5.2) g/dL Globulin 2.2 (1.3-4.6) g/dL Lipase 10 L (13-60) U/L Urine Color (Yellow) Urine Appearance (CLEAR) Urine pH (5-7) Ur Specific Gravit y (1.005-1.030) Urine Protein (Negative) Urine Glucose (UA) (Normal) Urine Ketones (Negative) Urine Blood (Negative) Urine Nitrate (Negative) Urine Bilirubin (Negative) Prot Sulfosalicyli c Acd (Negative) Urine Urobilinogen (Negative) mg/dL Ur Leukocyte Shanae ase (Negative) Urine RBC (0-2) /hpf Urine WBC (0-5) /hpf Ur Squamous Epith Cells (0-5) /hpf Amorphous Sediment Urine Bacteria (NONE) /hpf SARS-CoV-2 Ag (Rap id) (Negative) 12/12/20 12/12/20 Range/Units 15:39 16:13 WBC (4.0-10.0) 10^3/ uL RBC (4.1-5.3) 10^6/u L Hgb (11.7-16.6) g/dL Hct (42.0-52.0) % MCV (80-94) fL MCH (28.0-34.0) pg MCHC (30.0-36.0) g/dL RDW (12.1-15.1) % Plt Count (130-400) 10^3/c mm MPV (7.4-10.4) fL Neut % (Auto) % Lymph % (Auto) % [place] % (Auto) % Eos % (Auto) % Baso % (Auto) % Neut # (Auto) (1.8-7.7) 10^3/u L Lymph # (Auto) (0.8-4.8) 10^3/u L [place] # (Auto) (0.2-0.9) 10^3/u L Eos # (Auto) (0.0-0.8) 10^3/u L Baso # (Auto) (0.0-0.1) 10^3/u L Nucleated RBC % (a uto) % Nucleated RBCs # /100WBC Sodium (136-145) mmol/L Potassium (3.5-5.1) mmol/L Chloride (98-107) mmol/L Carbon Dioxide (22-29) mmol/L Anion Gap (5-19) BUN (8-23) mg/dL Creatinine (0.7-1.2) mg/dL GFR Calculation Glucose (65-115) mg/dL Calculated Osmolal ity (285-295) mOsm/k g Calcium (8.5-10.5) mg/dL Total Bilirubin (0.15-1.2) mg/dL AST (0-40) U/L ALT (0-41) U/L Alkaline Phosphata se (40-130) IU/L Troponin T Gen 5 n g/L (0-15) ng/L Total Protein (6.6-8.7) g/dL Albumin (3.5-5.2) g/dL Globulin (1.3-4.6) g/dL Lipase (13-60) U/L Urine Color [place] (Yellow) Urine Appearance Clear (CLEAR) Urine pH 8 H (5-7) Ur Specific Gravit y 1.010 (1.005-1.030) Urine Protein Neg (Negative) Urine Glucose (UA) Norm (Normal) Urine Ketones Negative (Negative) Urine Blood Neg (Negative) Urine Nitrate Negative (Negative) Urine Bilirubin 1+ H (Negative) Prot Sulfosalicyli c Acd Negative (Negative) Urine Urobilinogen 4 H (Negative) mg/dL Ur Leukocyte Shanae ase Negative (Negative) Urine RBC 0-4 H (0-2) /hpf Urine WBC None (0-5) /hpf Ur Squamous Epith Cells 0-4 H (0-5) /hpf Amorphous Sediment Not Reportable Urine Bacteria Trace (NONE) /hpf SARS-CoV-2 Ag (Rap id) Negative (Negative) Imaging Data^: CT Head: Radiologist's impression: [id number] [id number] [address] Scan Report Signed Patient: Arpan Pabon Unit #: [id number] : 1950 Age/Sex: 70 / M ADM Date: 12/12/20 Loc: ER Room/Bed: Attending Dr: Ordering Provider/Ordering MD: Tanisha Villanueva DO Date of Service: 12/12/20 Procedure(s): CT head wo con* [id number] Accession Number(s): [id number] Report Number: [id number] PROCEDURE INFORMATION: Exam: CT Head Without Contrast Exam date and time: 12/12/2020 4:44 PM Age: 70 years old Clinical indication: Pain; Dizziness; Headache; Additional info: Headache and dizzy, HX of throat and pancreatic CA TECHNIQUE: Imaging protocol: Computed tomography of the head without contrast. Total images: 202 Radiation optimization: All CT scans at this facility use at least one of these dose optimization techniques: automated exposure control; mA and/or kV adjustment per patient size (includes targeted exams where dose is matched to clinical indication); or iterative reconstruction. COMPARISON: No relevant prior studies available. RADIATION DOSE METRICS: Total DLP (mGy-cm): 916.8 FINDINGS: Brain: No evidence of active or acute intracranial pathologic process, hemorrhage, or trauma. No visible evidence of diffuse cerebral edema or generalized demyelination. No mass effect. No midline shift. Atrophic changes not inconsistent with the patient's chronological age. Cerebral ventricles: No ventriculomegaly. Bones/joints: Unremarkable. No acute fracture. Paranasal sinuses: Visualized sinuses are unremarkable. No fluid levels. Mastoid air cells: Mild left mastoiditis. Soft tissues: Unremarkable. CT/CT head wo con* [id number] IMPRESSION: 1. No evidence of active or acute intracranial pathologic process, hemorrhage, or trauma. 2. Mild left mastoiditis. CT Chest: Radiologist's impression: [address] [address] [address] Scan Report Signed with Addenda Patient: Arpan Pabon Unit #: [id number] : 1950 Age/Sex: 70 / M ADM Date: 12/12/20 Loc: ER Room/Bed: Attending Dr: Ordering Provider/Ordering MD: Tanisha Villanueva DO Date of Service: 12/12/20 Procedure(s): CT angio chest w abd pel w con Accession Number(s): [id number] Report Number: [id number]/CT angio chest w abd pel w con THIS REPORT CONTAINS FINDINGS THAT MAY BE CRITICAL TO PATIENT CARE. The findings were verbally communicated via telephone conference with Dr Jose Mccloud at 6:20 PM CDT on 12/12/2020. The findings were acknowledged and understood. Radiation Dose CTDIVOL = (mGy): DLP = 1358.82 1358.82 (mGy-cm) Addendum Dictated By: Naresh Guillen Addendum Signed By: Naresh Guillen Signed Date/Time: 12/12/20 183 3 Addendum Cosigned By: PROCEDURE INFORMATION: Exam: CTA Chest With Contrast Exam date and time: 12/12/2020 4:44 PM Age: 70 years old Clinical indication: Fever; Abdominal pain; Cough; Chest pain; Prior surgery; Surgery type: Peg tube, port; Additional info: Chest pain, cough, fever, cancer TECHNIQUE: Imaging protocol: Computed tomographic angiography of the chest with contrast. 3D rendering (Not supervised by radiologist): MIP and/or 3D reconstructed images were created by the technologist. Total images: 1207 Radiation optimization: All CT scans at this facility use at least one of these dose optimization techniques: automated exposure control; mA and/or kV adjustment per patient size (includes targeted exams where dose is matched to clinical indication); or iterative reconstruction. Contrast material: OMNI 350; Contrast volume: 95 ml; Contrast route: INTRAVENOUS (IV); COMPARISON: CR XR chest 1V portable [id number] 06/11/2020 6:07 PM RADIATION DOSE METRICS: Total DLP (mGy-cm): 1358.82 FINDINGS: Tubes, catheters and devices: Right Infusaport catheter. Pulmonary arteries: No visible evidence of pulmonary embolism/pulmonary arterial thrombus. Aorta: The thoracic aorta is nonaneurysmal. No visible intimal flap or dissection. Arteriosclerosis of mild severity. Lungs: COPD/chronic bronchitis. Calcified granulomas of antecedent disease. No visible active interstitial or alveolar airspace disease. Pleural spaces: Unremarkable. No pneumothorax. No pleural effusion. Heart: No cardiomegaly. No visible pericardial effusion. No visible significant coronary artery disease identified. Lymph nodes: No visible active mediastinal or hilar lymphadenopathy. Bones/joints: Mild scoliotic curvature. Degenerative disease and degenerative disc disease of the spine with spondylosis deformans. No visible active or acute osseous abnormality. Soft tissues: Unremarkable. IMPRESSION: No visible evidence of pulmonary embolism/pulmonary arterial thrombus. PROCEDURE INFORMATION: Exam: CT Abdomen And Pelvis With Contrast Exam date and time: 12/12/2020 4:44 PM Age: 70 years old Clinical indication: Fever; Abdominal pain; Cough; Chest pain; Prior surgery; Surgery type: Peg tube, port; Additional info: Chest pain, cough, fever, cancer TECHNIQUE: Imaging protocol: Computed tomography of the abdomen and pelvis with contrast. Radiation optimization: All CT scans at this facility use at least one of these dose optimization techniques: automated exposure control; mA and/or kV adjustment per patient size (includes targeted exams where dose is matched to clinical indication); or iterative reconstruction. Contrast material: OMNI 350; Contrast volume: 95 ml; Contrast route: INTRAVENOUS (IV); COMPARISON: 1. CR XR chest 1V portable [id number] 06/11/2020 6:[address] abdomen pelvis w con* [id number] 03/20/2020 2:43:36 PM RADIATION DOSE METRICS: Total DLP (mGy-cm): 1358.82 FINDINGS: Tubes, catheters and devices: PEG tube. Liver: No visible hepatic mass or cystic structure. Minimal periportal edema. Mild intrahepatic biliary ectasia left hepatic lobe. Gallbladder and bile ducts: Enlarged hydropic gallbladder. No gallbladder wall thickening. No visible cholelithiasis. Tiny amount of pericholecystic fluid. Common bile duct stent. Pancreas: Suspected cancer of the pancreatic head. Tissue margins are ambiguous and exact dimensions indeterminate. Marked pancreatic ductal ectasia distally measuring upwards of 10 mm. Estimated dimensions of the pancreatic head mass approximately 23 mm. Spleen: Few splenic calcifications of antecedent granulomatous disease. Tiny amount of perisplenic ascites. Adrenal glands: Adrenal glands unremarkable. Kidneys and ureters: No hydronephrosis or perinephric fluid. No visible nephrolithiasis. Stomach and bowel: Nonobstructive bowel pattern. No visible significant adynamic or reactive ileus. Appendix: The appendix is visualized and appears noninflamed. Intraperitoneal space: Mild mesenteric lymphadenitis with associated mesenteritis. Moderate diffuse mesenteric edema. Small volume intraperitoneal ascites. No visible pneumoperitoneum. Vasculature: Portal vein appears grossly patent. Findings of portal venous hypertension. The abdominal aorta is nonaneurysmal. Mild arterial sclerotic disease. Lymph nodes: Mild mesenteric lymphadenitis with associated mesenteritis. No visible retroperitoneal lymphadenopathy. Urinary bladder: Urinary bladder unremarkable. Reproductive: Prostate hypertrophy. Bones/joints: No visible active or acute osseous pathology. Soft tissues: Unremarkable. CT/CT angio chest w abd pel w con IMPRESSION: 1. No visible acute abdominal or pelvic pathologic process. 2. Pancreatic cancer as detailed in text above. 3. Small volume intraperitoneal ascites. 4. Evidence of portal venous hypertension. 5. Mild mesenteric lymphadenitis with associated mesenteritis. 6. Mesenteric edema. 7. Other nonurgent, nonemergent, chronic, postoperative, and age related findings as detailed in text above. Discharge Plan Discharge Patient Disposition: Home Clinical Impression: Pancreatic cancer Qualifiers: Pancreatic malignancy location: head of pancreas Qualified Code(s): C25.0 - Malignant neoplasm of head of pancreas Condition: Stable Prescriptions: No Action hydromorphone [Dilaudid] 2 mg tablet 2 mg PO Q4H RF: 0 doxazosin 4 mg tablet 4 mg PO DAILY@1000 RF: 0 Discharge Orders: Discharge ED (Routine); Ordered 12/12/20 Ordered By: Jose Carbajal Referrals: Michael Dumont MD [Primary Care Provider] - 1-3 days Discharge Diet: Advance as tolerated Discharge Activity: Resume usual activity Patient Instructions: Pancreatic Cancer (GEN), Opioid Safety Coding Level of Care Code ED Panel Wirer for Regina Walters
[2020-12-12] MEDS: ondansetron 2 mg/ML SDV 2 mL 4 MG IVP (15:15)
[2020-12-12] MEDS: HYDROmorphone 1 mg/mL INJ 1 mL IVP ×2 (15:15→18:15)
[2020-12-12] MEDS: sodium chloride 0.9% 1,000 ML 999 ML IV ×2 (15:16→18:22)
[2020-12-12 15:24] VITALS: BP 99/69; PULSE 74; RESP 14; O2SAT 96
[2020-12-12 15:38] LABS: Basophils % 0.3 %; Hematocrit 29.9 % (42.0-52.0); Hemoglobin 10.1 g/dL (11.7-16.6); Lymphocytes % 2.2 %; Mean Corpuscular HGB Conc 33.8 g/dL (30.0-36.0); Mean Corpuscular Hemoglobin 31.7 pg (28.0-34.0); Mean Corpuscular Volume 93.7 fL (80-94); Mean Platelet Volume 9.6 fL (7.4-10.4); Monocytes % 7.4 %; Neutrophils # 5.25 10^3/uL (1.8-7.7); Neutrophils % 89.9 %; Platelet Count 118 10^3/cmm (130-400); Red Blood Count 3.19 10^6/uL (4.1-5.3); Red Cell Distribution Width 12.6 % (12.1-15.1); White Blood Count 5.8 10^3/uL (4.0-10.0)
[2020-12-12 15:39] LABS: Lymphocytes # 0.1 10^3/uL (0.8-4.8); Monocytes # 0.4 10^3/uL (0.2-0.9); Nucleated Red Blood Cells % 0 %
[2020-12-12 16:18] VITALS: BP 117/58; PULSE 73; RESP 15; O2SAT 98
[2020-12-12 16:27] LABS: Alanine Aminotransferase 287 U/L (0-41); Albumin Level 3.9 g/dL (3.5-5.2); Alkaline Phosphatase 115 IU/L (40-130); Anion Gap 12.4 (5-19); Aspartate Amino Transferase 369 U/L (0-40); Blood Urea Nitrogen 15 mg/dL (8-23); Calcium 8.2 mg/dL (8.5-10.5); Carbon Dioxide 24 mmol/L (22-29); Chloride 95 mmol/L (98-107); Creatinine Clr Calc Pharmacy 89.4638; Globulin 2.2 g/dL (1.3-4.6); Glucose 132 mg/dL (65-115); Lipase 10 U/L (13-60); Osmolality Calculated 269 mOsm/kg (285-295); Potassium 3.4 mmol/L (3.5-5.1); Sodium 128 mmol/L (136-145); Total Protein 6.1 g/dL (6.6-8.7)
--- NOTE | 2020-12-12 16:39 | CTR_ITS ---
PROCEDURE INFORMATION: Exam: CT Head Without Contrast Exam date and time: 12/12/2020 4:44 PM Age: 70 years old Clinical indication: Pain; Dizziness; Headache; Additional info: Headache and dizzy, HX of throat and pancreatic CA TECHNIQUE: Imaging protocol: Computed tomography of the head without contrast. Total images: 202 Radiation optimization: All CT scans at this facility use at least one of these dose optimization techniques: automated exposure control; mA and/or kV adjustment per patient size (includes targeted exams where dose is matched to clinical indication); or iterative reconstruction. COMPARISON: No relevant prior studies available. RADIATION DOSE METRICS: Total DLP (mGy-cm): 916.8 FINDINGS: Brain: No evidence of active or acute intracranial pathologic process, hemorrhage, or trauma. No visible evidence of diffuse cerebral edema or generalized demyelination. No mass effect. No midline shift. Atrophic changes not inconsistent with the patient's chronological age. Cerebral ventricles: No ventriculomegaly. Bones/joints: Unremarkable. No acute fracture. Paranasal sinuses: Visualized sinuses are unremarkable. No fluid levels. Mastoid air cells: Mild left mastoiditis. Soft tissues: Unremarkable. CT/CT head wo con* [id number] IMPRESSION: 1. No evidence of active or acute intracranial pathologic process, hemorrhage, or trauma. 2. Mild left mastoiditis. Radiation Dose CTDIVOL = (mGy): DLP = 916.8 (mGy-cm)
--- NOTE | 2020-12-12 16:50 | ECG_ITS ---
[facility] Test Date: 2020-12-12 Pat Name: Arpan Pabon Department: Room: Gender: Male It Programmer: : 1950 Requested By: Tanisha Meneses Order Number: [id number] Mary MD: Aubrey Merchant M.D. Measurements Intervals [place] Rate: 65 P: 86 NE: 175 QRS: 90 QRSD: 104 T: 68 QT: 377 QTc: 394 Interpretive Statements SINUS RHYTHM Compared to ECG 06/11/2020 18:43:16 Sinus bradycardia no longer present Electronically Signed On 12-12-2020 23:58:44 CDT by Aubrey Merchant M.D. [id number]
[2020-12-12 17:02] LABS: SARS Covid-2 Antigen Negative (Negative)
[2020-12-12 17:11] LABS: Troponin T (5th) Once 14 ng/L (0-15)
[2020-12-12 17:19] LABS: Add Urine Culture? No; Bacteria Urine TRACE /hpf; Bilirubin Urine 1+ (Negative); Blood Urine Neg (Negative); Glucose Urine UA Norm (Normal); Ketones Urine Negative (Negative); Leukocyte Esterase Urine Negative (Negative); Nitrate Urine Negative (Negative); Protein Urine Neg (Negative); RBC Urine 0-4 /hpf (0-2); Squamous Epithelial Cell Urine 0-4 /hpf (0-5); Sulfosalicylic Acid Urine Negative (Negative); Urine Appearance Clear (CLEAR); Urine Color Orange (Yellow); Urobilinogen Urine 4 mg/dL (Negative); pH Urine 8 (5-7)
--- NOTE | 2020-12-12 17:27 | PC.NURSE ---
pt to CT scan by stretcher with tech
[2020-12-12] MEDS: iohexol 350 mg/mL 100 mL Btl IV (17:38)
[2020-12-12 18:17] VITALS: BP 110/60; PULSE 69; RESP 22; O2SAT 99
[2020-12-12 19:41] VITALS: BP 110/60; PULSE 69; RESP 22; O2SAT 99
== END 2020-12-12 19:35 | disposition home or self-care (01) ==
PROVIDERS: Emergency Medicine; Emergency Provider Emergency Medicine; PCP Family Medicine
DX: C25.0 Malignant neoplasm of head of pancreas (principal); I48.91 Unspecified atrial fibrillation
CPT/HCPCS: 70450; 71275; 74177; 80053; 81001; 83690; 84484; 85025; 87426; 93005; 96361; 96374; 96375; 96376; 99284; J1170; J2405; J7030; Q9967

== ENCOUNTER 2020-12-29 15:12 | Emergency (ER) | payer MEDICARE, SELFPAY ==
[2020-12-29 15:26] VITALS: BP 106/63; PULSE 58; RESP 18; TEMP 36.8; O2SAT 98; BMI 19.5
--- NOTE | 2020-12-29 15:51 | ED_ITS ---
HPI - Recheck/Abnormal Lab/Rx General: Chief Complaint: Recheck/Abnormal Lab/Rx Stated Complaint: NEED PEG TUBE REPLACED Time Seen by Provider: 12/29/20 15:36 History of Present Illness: HPI narrative: Patient comes in today with displaced G-tube. Patient is needing replacement of his G-tube. Patient has been without pain medication for 4 hours now and is also requesting something for pain. Patient has a history of pancreatic and esophageal cancer. Review of Systems General: Reports: 10 or more systems reviewed and unremarkable except in HPI and below GI: Reports: other (Displaced G-tube) PFS ED PFSH: Medical History (Updated 12/29/20 @ 16:22 by OLLIE Roldan) BPH loc w urin obs/LUTS History of atrial fibrillation Incomplete bladder emptying Neoplasm of uncertain behavior of hypopharynx Pancreatic cancer Surgical History H/O knee surgery H/O shoulder surgery Family History Father Hypertension Dementia Mother , AT AGE 89 Cancer BREAST Social History Smoking and tobacco status: never smoked Alcohol intake: never Adopted: No Caregiver/support person: No Lives independently: Yes Marital status: Current occupational status: retired and disabled History of recent travel: No Physical Exam Const: COMMON NORMALS: no acute distress and patient oriented x3 GENERAL APPEARANCE: cooperative HENMT: COMMON NORMALS: normocephalic and Normal external nose present HEAD & SCALP: normal to inspection and normocephalic NOSE: Normal external nose present Eye: GENERAL EYE: appearance normal, both eyes and all related structures Neck/C-Spine: COMMON NORMALS: full ROM Lymph: LYMPHATIC: no lymphadenopathy noted Chest: COMMONS NORMALS: normal inspection of the chest Resp: COMMON NORMALS: normal respiratory effort EFFORT & INSPECTION: Yes able to speak in complete sentences Cardio: COMMON NORMALS: regular rate and regular rhythm RATE: regular rate RHYTHM: regular rhythm GI: COMMON NORMALS: non-tender OTHER: Ostomy is noted intact. No obvious swelling or injury is noted. Extremity: COMMON NORMALS: normal to inspection Neuro: COMMON NORMALS: patient oriented x3 and moves all extremities Psych: COMMON NORMALS: mental status grossly normal and cooperative Skin: COMMON NORMALS: no rashes or lesions noted GENERAL SKIN EXAM: no rashes or lesions noted Procedures Feeding Tube Replacement Type of Tube: gastrostomy Insertion Site Prior to Procedure: clean and tender Kinyarwanda Tube Size (F): 18 Balloon size (mL): 10 Verification of Placement: auscultation Tube Secured by: tape/dressing Patient Tolerated Procedure: well Complications: local bleeding Additional Comments: Patient had pulled the old tube out with balloon inflated. He states that it was excellently pulled when it got caught on his clothing. Site had a small amount of swelling at the 7 o'clock position. Was able to replace the G-tube with mild resistance, at the area of swelling and tenderness there was a small amount of bleeding post replacement. Auscultation and aspiration of stomach contents verified placement. Course Vital Signs: Vital signs: Vital Signs Temperature 98.2 F 12/29/20 15:26 Pulse Rate 58 L 12/29/20 15:26 Respiratory Rate 20 H 12/29/20 15:56 Blood Pressure 106/63 12/29/20 15:26 Pulse Oximetry 98 12/29/20 15:26 MDM - Recheck/Abnormal Lab/Rx MDM Narrative: Medical decision making narrative: Patient comes back in for replacement of his G-tube. Patient accidentally pulled out the tube when it got caught on his clothing. On exam there was some tenderness and a little area of swelling at the 7 o'clock position of the G-tube ostomy. I was able to replace the G-tube with minimal effort. There was a little post procedure bleeding at the area of tenderness and swelling. No significant redness or other signs of infection was noted. Auscultation and aspiration of stomach contents verified placement of the G-tube. Patient tolerated procedure well. Patient was given a dose of hydromorphone 2 mg IM due to patient's time with displaced tube and inability to take pain medications prior to procedure. Discharge Plan Discharge Patient Disposition: Home Clinical Impression: Gastrostomy tube dysfunction Condition: Stable Prescriptions: No Action hydromorphone [Dilaudid] 2 mg tablet 2 mg PO Q4H RF: 0 doxazosin 4 mg tablet 4 mg PO BID Qty: 60 RF: 12 Discharge Orders: Discharge ED (Routine); Ordered 12/29/20 Ordered By: Percy Noble Referrals: Michael Dumont MD [Primary Care Provider] - Discharge Diet: Usual diet Discharge Activity: Increase activity as tolerated Patient Instructions: Opioid Safety Activity Restrictions/Additional Instructions: Continue with routine care. Activity as tolerated. Follow-up with primary care for further instruction. Return to the ER for new concerns. Coding Level of Care Code ED Electronic Components Assembler for [employer] Fwd Exam Comprehensive
[2020-12-29 15:56] VITALS: RESP 20
[2020-12-29] MEDS: HYDROmorphone 1 mg/mL INJ 1 mL 2 MG IM (15:56)
--- NOTE | 2020-12-29 16:36 | PC.NURSE ---
18Fr G-tube placed by Sergei Noble PREPARATION PLANT REPAIRER, Pt tolerates well. Secured with gauze and tape.
== END 2020-12-29 16:38 | disposition home or self-care (01) ==
PROVIDERS: Emergency Provider Nurse Practitioner Family; PCP Family Medicine
DX: K94.29 Other complications of gastrostomy (principal); Z85.07 Personal history of malignant neoplasm of pancreas
CPT/HCPCS: 43762; 96372; 99283; J1170

== ENCOUNTER 2020-12-29 18:22 | Emergency (ER) | payer MEDICARE, SELFPAY ==
[2020-12-29] VITALS (8 sets, daily range): BP systolic 117–155; BP diastolic 60–78; PULSE 44–66; RESP 12–18; O2SAT 96–100; BMI 19.5
--- NOTE | 2020-12-29 18:52 | XRR_ITS ---
PROCEDURE INFORMATION: Exam: XR Abdomen Exam date and time: 12/29/2020 7:15 PM Age: 70 years old Clinical indication: Device placement; Gi device; Peg tube; Patient HX: Gtube replaced today; Additional info: G tube TECHNIQUE: Imaging protocol: XR of the abdomen. Views: Frontal supine view of the abdomen. 1 View. Total images: 2 COMPARISON: CT angio chest w abd pel w con 12/12/2020 5:43 PM FINDINGS: Tubes, catheters and devices: Gastrostomy tube tip directed cephalad potentially at the level of the fundus of the stomach. Biliary stent. Gastrointestinal tract: Nonobstructive bowel pattern. No visible adynamic or reactive ileus. Heavy fecal residue consistent with constipation. Bones/joints: Unremarkable for age. XR/XR KUB portable [id number] IMPRESSION: 1. Gastrostomy tube tip directed cephalad potentially at the level of the fundus of the stomach. 2. Biliary stent. 3. Constipation.
--- NOTE | 2020-12-29 18:55 | ECG_ITS ---
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
[2020-12-29] MEDS: sodium chloride 0.9% 1,000 ML 999 ML IV (19:16)
[2020-12-29] MEDS: ondansetron 2 mg/ML SDV 2 mL 4 MG IVP (19:17)
[2020-12-29] MEDS: HYDROmorphone 1 mg/mL INJ 1 mL IVP (19:17)
[2020-12-29 19:27] LABS: Basophils % 0.3 %; Eosinophils % 0.8 %; Hematocrit 33.3 % (42.0-52.0); Hemoglobin 11.2 g/dL (11.7-16.6); Lymphocytes # 0.4 10^3/uL (0.8-4.8); Lymphocytes % 11.5 %; Mean Corpuscular HGB Conc 33.6 g/dL (30.0-36.0); Mean Corpuscular Hemoglobin 31.8 pg (28.0-34.0); Mean Corpuscular Volume 94.6 fL (80-94); Mean Platelet Volume 9.7 fL (7.4-10.4); Monocytes # 0.3 10^3/uL (0.2-0.9); Monocytes % 9.5 %; Neutrophils # 2.77 10^3/uL (1.8-7.7); Neutrophils % 77.6 %; Nucleated Red Blood Cells % 0 %; Platelet Count 178 10^3/cmm (130-400); Red Blood Count 3.52 10^6/uL (4.1-5.3); White Blood Count 3.6 10^3/uL (4.0-10.0)
[2020-12-29] MEDS: diphenhydrAMINE 50 mg/mL SDV 1mL 25 MG IVP (19:41)
[2020-12-29] MEDS: haloperidol inj 5 mg/mL INJ 1 mL 3 MG IVP (19:43)
[2020-12-29 19:45] LABS: Lactate (Lactic Acid level) 1.1 mmol/L (0.5-2.2)
[2020-12-29 19:46] LABS: Alanine Aminotransferase 20 U/L (0-41); Albumin Level 4.6 g/dL (3.5-5.2); Alkaline Phosphatase 78 IU/L (40-130); Anion Gap 14.7 (5-19); Aspartate Amino Transferase 22 U/L (0-40); Blood Urea Nitrogen 16 mg/dL (8-23); Calcium 8.7 mg/dL (8.5-10.5); Carbon Dioxide 21 mmol/L (22-29); Chloride 101 mmol/L (98-107); Globulin 2.7 g/dL (1.3-4.6); Glucose 105 mg/dL (65-115); Lipase 44 U/L (13-60); Osmolality Calculated 278 mOsm/kg (285-295); Potassium 3.7 mmol/L (3.5-5.1); Sodium 133 mmol/L (136-145); Total Bilirubin 0.5 mg/dL (0.15-1.2); Total Protein 7.3 g/dL (6.6-8.7)
--- NOTE | 2020-12-29 20:18 | W.ED.NAVMDI ---
HPI - Nausea/Vomiting/Diarrhea General: Chief complaint: Nausea/Vomiting/Diarrhea Stated complaint: poss allergic reaction Time Seen by Provider: 12/29/20 18:35 History of Present Illness: HPI Narrative: 70-year-old male who was in the ER earlier today to have a feeding tube replaced. On his return home, he began to vomit. He is vomited several times. He believes he is having a adverse reaction to pain medication he was given here. However, he was given IM Dilaudid, and is on oral Dilaudid at home. He presents vomiting. MD elicited complaint: nausea and vomiting Pertinent past history: abdominal surgery and other Onset (ago): hour(s) Description of vomiting: watery Associated nausea: Yes Associated abdominal pain: No Quality: cramping Exacerbating factors: medication Relieving factors: none Associated symtoms: Reports nausea; Denies chest pain, cough, diaphoresis, decreased urine output, fecal incontinence, fevers/chills or headache(s) Review of Systems Const: Denies: diaphoresis Card: Denies: chest pain Resp: Denies: dyspnea GI: Reports: nausea; Denies: fecal incontinence Neuro: Denies: headache(s) PFS ED PFSH: Medical History (Updated 12/29/20 @ 21:56 by Jose Rand DO) BPH loc w urin obs/LUTS History of atrial fibrillation Incomplete bladder emptying Neoplasm of uncertain behavior of hypopharynx Pancreatic cancer Surgical History H/O knee surgery H/O shoulder surgery Family History Father Hypertension Dementia Mother , AT AGE 89 Cancer BREAST Social History Smoking and tobacco status: never smoked Alcohol intake: never Adopted: No Caregiver/support person: No Lives independently: Yes Marital status: Current occupational status: retired and disabled History of recent travel: No Physical Exam Const: COMMON NORMALS: patient oriented x3 GENERAL APPEARANCE: in distress (actively vomiting) and frail appearing Chest: COMMONS NORMALS: normal inspection of the chest Resp: COMMON NORMALS: normal respiratory effort, No use of accessory muscles and clear to auscultation bilaterally AUSCULTATION: clear to auscultation bilaterally Cardio: COMMON NORMALS: regular rate and regular rhythm RATE: regular rate RHYTHM: regular rhythm GI: COMMON NORMALS: Normal to inspection, nondistended, normoactive bowel sounds present, Soft to palpation and non-tender PALPATION: Yes Soft to palpation Neuro: COMMON NORMALS: patient oriented x3 Course Vital Signs: Vital signs: Vital Signs Pulse Rate 48 L 12/29/20 22:16 Respiratory Rate 17 12/29/20 22:16 Blood Pressure 127/61 12/29/20 22:16 Pulse Oximetry 96 12/29/20 22:16 MDM - Nausea/Vomiting/Diarrhea MDM Narrative: Medical decision making narrative: 70-year-old cancer patient who is on pain medication multiple times per day. He went for an extended period without pain medication today and then was given an injection. He presents vomiting. I do not know whether this is an adverse reaction of some kind, versus early withdrawal. His G-tube was replaced, and appears to be in the stomach by x-ray. Gastric contents were aspirated. His hemoglobin is 11.2. White blood cell count is 3.6. No neutropenia. He was given some IV fluid here. He was given IV Zofran, and Dilaudid for pain control here. When he continued to vomit, he was given Haldol and Benadryl, which seemed to resolve his vomiting. He rested comfortably following that. He was bradycardic on the monitor which is his usual rhythm. On waking, he was no longer nauseated, had no more vomiting, was not in pain, and left in stable condition. Lab Data: Labs: Lab Results 12/29/20 12/29/20 12/29/20 Range/Units 19:15 19:15 19:15 WBC 3.6 L (4.0-10.0) 10^3/ uL RBC 3.52 L (4.1-5.3) 10^6/u L Hgb 11.2 L (11.7-16.6) g/dL Hct 33.3 L (42.0-52.0) % MCV 94.6 H (80-94) fL MCH 31.8 (28.0-34.0) pg MCHC 33.6 (30.0-36.0) g/dL RDW 13.0 (12.1-15.1) % Plt Count 178 (130-400) 10^3/c mm MPV 9.7 (7.4-10.4) fL Neut % (Auto) 77.6 % Lymph % (Auto) 11.5 % [place] % (Auto) 9.5 % Eos % (Auto) 0.8 % Baso % (Auto) 0.3 % Neut # (Auto) 2.77 (1.8-7.7) 10^3/u L Lymph # (Auto) 0.4 L (0.8-4.8) 10^3/u L [place] # (Auto) 0.3 (0.2-0.9) 10^3/u L Eos # (Auto) 0.0 (0.0-0.8) 10^3/u L Baso # (Auto) 0.0 (0.0-0.1) 10^3/u L Nucleated RBC % (a uto) 0 % Nucleated RBCs # 0.0 /100WBC Sodium 133 L (136-145) mmol/L Potassium 3.7 (3.5-5.1) mmol/L Chloride 101 (98-107) mmol/L Carbon Dioxide 21 L (22-29) mmol/L Anion Gap 14.7 (5-19) BUN 16 (8-23) mg/dL Creatinine 0.9 (0.7-1.2) mg/dL GFR Calculation Not Reportable Glucose 105 (65-115) mg/dL Calculated Osmolal ity 278 L (285-295) mOsm/k g Lactate 1.1 (0.5-2.2) mmol/L Calcium 8.7 (8.5-10.5) mg/dL Total Bilirubin 0.5 (0.15-1.2) mg/dL AST 22 (0-40) U/L ALT 20 (0-41) U/L Alkaline Phosphata se 78 (40-130) IU/L C-Reactive Protein 2.0 (0.0-4.9) mg/L Total Protein 7.3 (6.6-8.7) g/dL Albumin 4.6 (3.5-5.2) g/dL Globulin 2.7 (1.3-4.6) g/dL Lipase 44 (13-60) U/L Discharge Plan Discharge Patient Disposition: Home Clinical Impression: Vomiting Qualifiers: Vomiting type: unspecified Vomiting Intractability: non-intractable Nausea presence: with nausea Qualified Code(s): R11.2 - Nausea with vomiting, unspecified Condition: Stable Prescriptions: No Action hydromorphone [Dilaudid] 2 mg tablet 2 mg PO Q4H RF: 0 doxazosin 4 mg tablet 4 mg PO BID Qty: 60 RF: 12 Discharge Orders: Discharge ED (Routine); Ordered 12/29/20 Ordered By: Jose Rand Referrals: Michael Dumont MD [Primary Care Provider] - 1-3 days Discharge Diet: Advance as tolerated and Clear Liquid Discharge Activity: Increase activity as tolerated Patient Instructions: Acute Nausea and Vomiting (ED), Opioid Safety Activity Restrictions/Additional Instructions: Return for fever greater than 100, vomiting liquids or medications, increasing pain, other concerning symptoms peer Coding Level of Care Code ED Csr Retail for Regina Walters
== END 2020-12-29 22:18 | disposition home or self-care (01) ==
PROVIDERS: Emergency Provider Emergency Medicine; PCP Family Medicine
DX: R11.2 Nausea with vomiting, unspecified (principal); Z85.07 Personal history of malignant neoplasm of pancreas
CPT/HCPCS: 74018; 80053; 83605; 83690; 85025; 86140; 93005; 96361; 96374; 96375; 99284; J1170; J1200; J1630; J2405; J7030

== ENCOUNTER 2021-02-07 13:06 | Outpatient (CLI) | payer MEDICARE, SELFPAY ==
--- NOTE | 2021-02-07 13:11 | USCV_ITS ---
Arpan Pabno Age: 70 Gender: M : 1950 Exam Date: 02/07/2021 13:22 Ordering Phys: Michael Dumont MD Technologist: Holly Salinas Exam Location: [facility] [place] Indication: BLE PAIN AND SWELLING HISTORY: Lower extremity pain. Lower extremity swelling. PROCEDURES: Venous duplex imaging was performed in bilateral lower extremities. The following venous structures were evaluated: common femoral vein, profunda vein, proximal portion of the greater saphenous vein, superficial femoral vein, and the popliteal vein. In addition, the posterior tibial and peroneal trunk were evaluated. Serial compression, augmentation maneuvers, and spectral Doppler flow evaluation were performed. FINDINGS: Normal 2-D Doppler and augmentation and compressibility throughout the lower extremity venous structures. Additional imaging through the proximal calf veins also reveals no thrombus. Limited evaluation of the greater saphenous vein is patent with no thrombus. CONCLUSIONS No DVT bilateral lower extremities. Dr. Samantha Salinas DO (Electronically Signed) Final Date: 07 February 2021 15:29 S
== END 2021-02-07 13:07 | disposition home or self-care (01) ==
LOC: RAD 13:09
PROVIDERS: PCP Family Medicine; Visit Provider Family Medicine
DX: R60.9 Edema, unspecified (principal); M79.604 Pain in right leg; M79.605 Pain in left leg
CPT/HCPCS: 93970

== ENCOUNTER 2021-02-15 08:55 | Outpatient (CLI) | payer MEDICARE, SELFPAY ==
[2021-02-15 11:12] LABS: Basophils % 0.3 %; Eosinophils % 0.3 %; Hematocrit 31.7 % (42.0-52.0); Hemoglobin 10.7 g/dL (11.7-16.6); Lymphocytes # 0.3 10^3/uL (0.8-4.8); Lymphocytes % 9.6 %; Mean Corpuscular HGB Conc 33.8 g/dL (30.0-36.0); Mean Corpuscular Hemoglobin 31.5 pg (28.0-34.0); Mean Corpuscular Volume 93.2 fL (80-94); Mean Platelet Volume 9.2 fL (7.4-10.4); Monocytes # 0.3 10^3/uL (0.2-0.9); Monocytes % 8.3 %; Neutrophils # 2.62 10^3/uL (1.8-7.7); Neutrophils % 80.9 %; Nucleated Red Blood Cells % 0 %; Platelet Count 177 10^3/cmm (130-400); Red Cell Distribution Width 13.2 % (12.1-15.1); White Blood Count 3.2 10^3/uL (4.0-10.0)
[2021-02-15 11:17] LABS: INR 1.13 (0.8-1.2)
[2021-02-15 11:50] LABS: Carcinoembryonic Antigen 9.3 ng/mL (0.0-4.7)
[2021-02-15 12:01] LABS: Alanine Aminotransferase 14 U/L (0-41); Albumin Level 3.7 g/dL (3.5-5.2); Alkaline Phosphatase 68 IU/L (40-130); Anion Gap 15.6 (5-19); Aspartate Amino Transferase 19 U/L (0-40); Blood Urea Nitrogen 10 mg/dL (8-23); Calcium 8.2 mg/dL (8.5-10.5); Carbon Dioxide 25 mmol/L (22-29); Chloride 94 mmol/L (98-107); Globulin 2.5 g/dL (1.3-4.6); Glucose 114 mg/dL (65-115); Osmolality Calculated 272 mOsm/kg (285-295); Potassium 3.6 mmol/L (3.5-5.1); Sodium 131 mmol/L (136-145); Total Bilirubin 0.5 mg/dL (0.15-1.2); Total Protein 6.2 g/dL (6.6-8.7)
[2021-02-15 13:44] LABS: Cancer Antigen 19 9 824.9 U/mL (0-35)
--- NOTE | 2021-02-16 07:00 | ONC CON_ITS ---
Dr. Rodgers New Patient Note Patient: Arpan Pabon Unit #: [id number]: 1950 Dicatated By: Isiah Rodgers M.D.Date of Visit: Feb 15, 2021 Onc MED New Patient/Consult Referring Physician: Dr. VIK MERCER M.D. Chief Complaint: Right base of tongue cancer and pancreatic cancer. 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 He had initially presented in October 2019 with weight loss and difficulty swallowing. He was found to have a large right oropharyngeal mass. By CT scan it measured 3.3 cm and it appeared to involve the right base with extension to involve the epiglottis and the right aryepiglottic fold. There were enlarged right level 2 through 4 lymph nodes measuring up to 1.6 cm. Microlaryngoscopy with biopsy on 10/17/2019 revealed poorly differentiated squamous cell carcinoma, p16 positive. Staging PET/CT showed FDG avid right base of tongue mass extending into the supraglottis. It measured 7.2 cm. Also noted were FDG avid right and left cervical lymph nodes. He underwent definitive radiation concurrent with 2 doses of standard high-dose cisplatin chemotherapy. Radiation was completed on 01/26/2020. A restaging PET/CT on 05/21/2020 showed complete metabolic response of the previously noted right base of tongue mass and bilateral cervical lymphadenopathy. Mildly FDG avid right paratracheal and bilateral hilar lymph nodes were felt to be likely inflammatory. Also noted at that time was an ill-defined, moderately hypermetabolic soft tissue mass likely arising from the uncinate process and involving the adjacent mesenteric vessels, suspicious for primary pancreatic malignancy. There was associated interval increase in biliary ductal dilatation. Several small hypodense lesions in the liver were unchanged and were felt to be indeterminate. Upper EUS on 05/28/2020 showed an irregular mass within the uncinate process of the pancreas measuring 35 mm x 25 mm. The borders were poorly defined but there was sonographic evidence suggesting invasion into the superior mesenteric artery and the superior mesenteric vein. FNA biopsy of the mass was positive for adenocarcinoma. Subsequent to that procedure, he underwent ERCP with placement of biliary stent. He then underwent a course of chemotherapy with 3 cycles of gemcitabine in combination with nab-paclitaxel, administered from 06/20 through 08/14/2020. Restaging CT of the abdomen/pelvis on 08/14/2020 showed hypoenhancing uncinate process mass measuring 2.1 x 2.5 cm, not significantly changed from the May 2020 study. During that time, he had experienced a significant decline in his performance status, and in the absence of any evidence of response to the chemotherapy, he opted not to have any further treatment. He is seen now to assist with his further management. He has not been feeling good generally. He continues to have significant fatigue and limited activity tolerance. He says his energy is okay in the morning, but he has none afternoon. He is able to do some walking. He also is able to do some light work. His ECOG score is 1. He does not have any appetite. He is still using his PEG tube for nutritional support. He has just recently tried eating a little bit of yogurt. His weight recently has been stable, though he is down close to 50 pounds from his normal weight. He does not have fever or night sweats. He complains that he feels cold all the time. He does not have sore mouth or throat, but he he is dry and it is very difficult to swallow. He has some shortness of breath. He does not have cough and he does not complain of chest pain. He recently has developed abdominal swelling and some swelling in the lower extremities. He sometimes has nausea and he also has having some acid reflux. He tends to have multiple loose stools about every 3 to 4 days, and none in between. He also tends to have discomfort in the lower abdomen with bowel movements. Bladder function is OK, though he does have some hesitancy with urination and he has nocturia up to 4 times. He has no significant joint or bone pain. He does not complain of headache or dizziness. He has some numbness in his toes. He is having some anxiety and depression. Past Medical History: His medical history includes atrial fibrillation and coronary artery disease. Past Surgical History: His surgical/procedural history includes left shoulder tendon repair, multiple arthroscopic knee surgeries bilaterally, PEG tube placement, port placement, right bucket handle surgery, robotic coronary bypass procedure, ERCP with biliary stent placement in 2019, and upper EUS in 2019. Medications: Doxazosin Mesylate Tablet Oral, Famotidine (40 mg/5mL) Suspension, when reconstituted Oral daily, HYDROcodone-Acetaminophen (7.5-325 mg) Tablet Oral t.i.d. PRN, HYDROmorphone HCl (2 mg) Tablet Oral t.i.d. PRN, OxyCONTIN (10 mg) Tablet ER 12 HR Abuse-Deterrent Oral b.i.d. PRN, Pancrelipase (Xql-[id number]-Snqv) (85072 Units) Tablet Oral ac (tid), Tadalafil Tablet Oral PRN Allergies: Penicillins and Steroids placed in Red [employer]. Social History: Mr. Pabon is . 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 He is a non-smoker. He does not drink alcohol. Family History: Father had dementia and at age 89. Mother had breast cancer. She also age 89. One sister is in good health. Review Of Symptoms: Constitutional - His energy is okay in the morning, but not much afternoon. He does some walking and is able to do light work. He does not have appetite. He continues to receive nutritional support via PEG tube. Recently he has tried taking a little bit of yogurt orally. His weight recently has been stable, but he has down close to 50 pounds from normal. He does not have fever or night sweats. He complains that he feels cold all the time. ECOG score is 1, Eyes - No change in vision, ENMT - He has hearing loss. No tinnitus. He always has sinus drainage. He has not had sore mouth or throat, but he still has very limited ability to swallow, Hematologic/Lymphatic - He has easy bruising, Respiratory - He has some shortness of breath. No cough. No pleuritic pain or hemoptysis, Cardiovascular - No angina pain. No palpitations, Gastrointestinal - He sometimes has nausea, and he has acid reflux. He tends to have multiple loose bowel movements about every 3 to 4 days, and none in between. He tends to have discomfort in the lower abdomen with bowel movements. No blood in the stool or black stools, Genitourinary (M) - No dysuria or hematuria. He has some hesitancy and he has nocturia up to 4 times. No urgency or incontinence, Musculoskeletal - He currently he has no significant joint or bone pain, Integumentary - No skin rash or other skin changes, Neurologic - No headache or dizziness. He complains that his toes are numb. No other focal neurologic symptoms, Psychiatric - He has some anxiety and depression. No insomnia. Vital Signs: Performed on Feb 15, 2021 11:02: 8, 7, 20.53, 1.89 sq.m, 72 in, 98 %, 52 /min (LOW), 18 /min, 131/75 mm(hg), 97.8 F (LOW), and 151.4 lbs (HIGH). Physical Examination: Constitutional - He appears somewhat weak generally, Eyes - Sclerae nonicteric. Conjunctivae clear, ENMT - Mouth is a little dry. There are no lesions noted in the oral cavity, Neck - There is a little soft tissue swelling in the neck area. There is only mild induration. There is no mass or thyromegaly noted, Hematologic/Lymphatic - No cervical, clavicular, or axillary adenopathy noted, Respiratory - Lungs are clear with good air movement bilaterally, Cardiovascular - Heart rhythm is regular. There is no murmur, gallop, or rub noted, Abdomen - Moderately distended with suspected ascites. Liver and spleen are not enlarged. There is no abdominal mass noted and there is no inguinal adenopathy, Back/Spine - No spine or CVA tenderness noted, Extremities - Mild lower extremity edema. Pedal pulses are palpable bilaterally, Integumentary - No rashes. No suspicious skin lesions noted, Neurologic - No focal neurologic deficits noted. Problem List: 1. Adenocarcinoma involving the uncinate process of the pancreas, by clinical evaluation stage III (T4, N0, M0). 2. 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 3. Coronary artery disease. 4. History of atrial fibrillation. 5. Benign prostatic hypertrophy. 6. Anxiety/depression. 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 It was initially discovered as an incidental finding on PET/CT in May 2020 which was done for restaging of the base of tongue cancer, for which he had completed treatment in December 2019. The pancreatic cancer was deemed inoperable based on suspected involvement of the superior mesenteric artery and vein by ultrasound and CT. There was associated biliary stricture, for which she underwent placement of biliary stent. He then had treatment with 3 cycles of gemcitabine/nab-paclitaxel chemotherapy from 06/20 through 08/14/2020. His restaging CT scan unfortunately showed no evidence of response. During that time he experienced a significant decline in performance status, and he opted not to have any further treatment. He has since then been taking some herbal supplements. He is otherwise planning to just continue with symptomatic/supportive care measures. He has been using a combination of hydrocodone/APAP and hydromorphone to manage his pain. He currently does not have an option for a longer duration opiate, as he is required to take his medications via PEG tube and has reported allergy to fentanyl. At least for now his pain management appears to be adequate. His main complaint otherwise is the increasing abdominal distention and the swelling in his legs. He is scheduled to have a repeat CT abdomen/pelvis this coming week, and depending on the extent of the ascites, I likely will schedule him for a therapeutic paracentesis. In the meantime, I will have him start furosemide 20 mg daily for the lower extremity edema. I also will get baseline laboratory studies today to include CBC, CMP, and tumor markers, and I also will request a genetic screening study, as there is a history of breast cancer in the family and he could potentially harbor a BRCA mutation. In addition, I will check with the pathology department at [facility] to determine MSI studies can be done on the biopsy, though it is relatively unlikely. Signed By: Isiah Rodgers M.D. <<Signature on File>>
== END 2021-02-15 08:56 | disposition home or self-care (01) ==
PROVIDERS: PCP Family Medicine; Visit Provider Internal Medicine Medical Oncology
DX: C25.0 Malignant neoplasm of head of pancreas (principal); C79.89 Secondary malignant neoplasm of other specified sites; I25.10 Atherosclerotic heart disease of native coronary artery without angina pectoris; I48.20 Chronic atrial fibrillation, unspecified; N40.0 Benign prostatic hyperplasia without lower urinary tract symptoms; F41.9 Anxiety disorder, unspecified; F32.9 Major depressive disorder, single episode, unspecified; Z79.899 Other long term (current) drug therapy; Z92.21 Personal history of antineoplastic chemotherapy
CPT/HCPCS: 80053; 82378; 85025; 85610; 86301; 99205

== ENCOUNTER 2021-02-21 08:55 | Outpatient (CLI) | payer MEDICARE, SELFPAY ==
--- NOTE | 2021-02-21 | CT_ITS ---
WS: [id number] CT ABDOMEN PELVIS TECHNIQUE: Contrast-enhanced CT of the abdomen and pelvis with coronal and sagittal reformatted image s. CLINICAL INFORMATION: ADENOCARCINOMA COMPARISON: CT abdomen pelvis March 20, 2020 DLP: 1159.[address] scans at [facility] use at least one of these dose optimization techniques: automat ed exposure control; mA and/or kV adjustment per patient size (includes targeted exams where dose is matched to clinical indication); or iterative reconstruction. FINDINGS: Large volume intraperitoneal ascites. This is progressed since the prior examination. History of panc reatic head malignancy. Biliary ductal stent. Dilatation of pancreatic duct appears slightly progress ed. Mild intrahepatic biliary ductal dilatation appears slightly progressed. Common bile duct dilatat ion appears slightly progressed. Increased density in the distal common bile duct stent unchanged fro m previous. Recommend correlation for stent patency with liver function and biliary markers. Small bilateral pleural effusions are new from previous. Mild chronic emphysematous changes in the erwin ng bases. Subsegmental atelectasis left lower lobe. Gastrostomy tube in place. This appears in good p osition. Stomach and proximal duodenum appear normal. Normal spleen. Normal GE junction. Adrenal glands are normal. Normal renal parenchymal enhancement. N o hydronephrosis. Splenic varicosities. Evidence of portal vein hypertension. Normal caliber abdominal aorta. Sigmoid diverticulosis. No evidence of high-grade small or large emmy l obstruction.Fat-containing left inguinal hernia with a small amount of fluid along the internal can al. CT/CT abdomen pelvis w con* [id number] IMPRESSION: 1. History of pancreatic head malignancy with common bile duct stent extending into the duodenum. 2. Mild intrahepatic biliary ductal dilatation with dilatation common bile kishor t and pancreatic duct appear slightly progressed compared to previous.Soft tiss ue opacification of the distal stent is unchanged from December 12, 2020. Recommen d correlation for biliary stent patency with laboratory markers. This can be fu rther evaluated with ERCP if suspicion for obstruction. 3. Moderate to large volume abdominal and pelvic ascites has progressed since December 12, 2020. 4. Small bilateral pleural effusions are new from previous. 5. Sigmoid diverticulosis. No evidence of acute diverticulitis. 6. Gastrostomy tube appears in good position.
[2021-02-21] MEDS: iohexol 300 mg/mL 100 mL Btl IV (09:58)
[2021-02-21] MEDS: iohexol 300 mg/mL 50 mL Btl PO (09:59)
== END 2021-02-21 08:56 | disposition home or self-care (01) ==
LOC: RADWPI 08:57
PROVIDERS: PCP Family Medicine; Visit Provider Family Medicine
DX: C25.9 Malignant neoplasm of pancreas, unspecified (principal); R10.13 Epigastric pain; K57.30 Diverticulosis of large intestine without perforation or abscess without bleeding; J90 Pleural effusion, not elsewhere classified; R18.8 Other ascites
CPT/HCPCS: 74177; Q9967

== ENCOUNTER 2021-03-01 08:49 | Outpatient (CLI) | payer MEDICARE, SELFPAY ==
[2021-03-01 09:10] VITALS: BP 117/81; PULSE 67; RESP 16; TEMP 36.9; O2SAT 100
[2021-03-01 09:20] VITALS: BMI 20.2
--- NOTE | 2021-03-01 09:40 | US_ITS ---
WS: [id number] ULTRASOUND-GUIDED THERAPEUTIC PARACENTESIS Procedure, risks, and complications have been explained to the patient. Consent is obtained. Utilizing aseptic technique and 1% buffered lidocaine, a small dermatome was made through which a 5 F rench Yueh catheter was inserted. Approximately 4500 ml of clear peritoneal fluid was obtained witho ut difficulty. No complications encountered. US/US paracentesis abd w [id number] IMPRESSION: Uncomplicated paracentesis yielding 4500 ml of peritoneal fluid.
[2021-03-01 10:09] VITALS: RESP 20
--- NOTE | 2021-03-01 10:37 | PC.NURSE ---
2 MG HYDROMORPHONE TAB GIVEN VIA PEG TO PT PER DR RUDOLPH ORDER FOR PAIN. OTHER HALF OF HYDROMORPHONE 2 MG TABLET WASTED WITH GALEN BALTAZAR IN MED DESTROYER CONTAINER PER PHARMACY RECOMMENDATION SINCE UNABLE TO WASTE IN [facility].
[2021-03-01 10:44] VITALS: BP 109/62; PULSE 52; RESP 16; TEMP 36.4; O2SAT 100
== END 2021-03-01 08:50 | disposition home or self-care (01) ==
LOC: GILAB 08:54
PROVIDERS: PCP Family Medicine; Visit Provider Internal Medicine Medical Oncology
DX: C01 Malignant neoplasm of base of tongue (principal); C25.9 Malignant neoplasm of pancreas, unspecified
CPT/HCPCS: 49083

== ENCOUNTER 2021-03-12 08:03 | Outpatient (CLI) | payer MEDICARE, SELFPAY ==
--- NOTE | 2021-03-12 08:20 | US_ITS ---
WS: [id number] ULTRASOUND-GUIDED PARACENTESIS CLINICAL INFORMATION: ascites COMPARISON: None. Procedure Informed consent: The risks, benefits, and alternatives of the procedure were discussed with the denis ent. Verbal and written consent was obtained. Timeout: A timeout was performed to confirm the correct patient, procedure, and site. Preparation: A suitable skin site was identified. The patient was prepped and draped in usual sterile fashion. Lidocaine 1% was used for local anesthesia. Catheter: 4 [place] One-step Yueh catheter. Side: Left Lower quadrant. Fluid Volume: 6700 ml Color: Clear yellow DISPOSITION: Discarded safely. Complications: None. Patient disposition: Discharged from the department in stable condition. US/US paracentesis abd w [id number] IMPRESSION: Uncomplicated ultrasound-guided paracentesis. Removal of 6700 cc
[2021-03-12 08:23] VITALS: BMI 18.6
[2021-03-12 08:27] VITALS: BP 109/68; PULSE 62; RESP 16; TEMP 36.6; O2SAT 100
[2021-03-12 08:48] LABS: INR 1.14 (0.8-1.2)
[2021-03-12 11:19] VITALS: BP 107/59; PULSE 50; RESP 16; O2SAT 100
== END 2021-03-12 08:04 | disposition home or self-care (01) ==
PROVIDERS: PCP Family Medicine; Visit Provider Internal Medicine Medical Oncology
DX: R18.8 Other ascites (principal)
CPT/HCPCS: 36415; 49083; 85610

== ENCOUNTER 2021-03-14 15:00 | Outpatient (CLI) | payer MEDICARE, SELFPAY ==
--- NOTE | 2021-03-18 08:17 | ONC FU_ITS ---
Dr. Rodgers Patient Follow-Up Note Patient: Arpan Pabon Unit #: [id number]: [id number] Dicatated By: Isiah Rodgers M.D.Date of Visit:Mar 14, 2021 Onc Med Follow-up/Prog Note Chief Complaint: Right base of tongue cancer and pancreatic cancer. 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 He had initially presented in October 2019 with weight loss and difficulty swallowing. He was found to have a large right oropharyngeal mass. By CT scan it measured 3.3 cm and it appeared to involve the right base with extension to involve the epiglottis and the right aryepiglottic fold. There were enlarged right level 2 through 4 lymph nodes measuring up to 1.6 cm. Microlaryngoscopy with biopsy on 10/17/2019 revealed poorly differentiated squamous cell carcinoma, p16 positive. Staging PET/CT showed FDG avid right base of tongue mass extending into the supraglottis. It measured 7.2 cm. Also noted were FDG avid right and left cervical lymph nodes. He underwent definitive radiation concurrent with 2 doses of standard high-dose cisplatin chemotherapy. Radiation was completed on 01/26/2020. A restaging PET/CT on 05/21/2020 showed complete metabolic response of the previously noted right base of tongue mass and bilateral cervical lymphadenopathy. Mildly FDG avid right paratracheal and bilateral hilar lymph nodes were felt to be likely inflammatory. Also noted at that time was an ill-defined, moderately hypermetabolic soft tissue mass likely arising from the uncinate process and involving the adjacent mesenteric vessels, suspicious for primary pancreatic malignancy. There was associated interval increase in biliary ductal dilatation. Several small hypodense lesions in the liver were unchanged and were felt to be indeterminate. Upper EUS on 05/28/2020 showed an irregular mass within the uncinate process of the pancreas measuring 35 mm x 25 mm. The borders were poorly defined but there was sonographic evidence suggesting invasion into the superior mesenteric artery and the superior mesenteric vein. FNA biopsy of the mass was positive for adenocarcinoma. Subsequent to that procedure, he underwent ERCP with placement of biliary stent. He then underwent a course of chemotherapy with 3 cycles of gemcitabine in combination with nab-paclitaxel, administered from 06/20 through 08/14/2020. Restaging CT of the abdomen/pelvis on 08/14/2020 showed hypoenhancing uncinate process mass measuring 2.1 x 2.5 cm, not significantly changed from the May 2020 study. During that time, he had experienced a significant decline in his performance status, and in the absence of any evidence of response to the chemotherapy, he opted not to have any further treatment. I had seen him initially on 02/15/2021. By clinical evaluation, he appeared to have recurrence of his ascites. He had a scheduled CT of the abdomen/pelvis on 02/21/2021. It showed a large volume of intraperitoneal ascites with slight progression of pancreatic ductal dilatation. Mild intrahepatic biliary ductal dilatation and common bile duct dilatation also appeared to have slightly progressed. A common bile duct stent was noted to be extending into the duodenum. There were new small bilateral pleural effusions. On 03/01/2021 he underwent therapeutic paracentesis with removal of 4500 mL of fluid. The procedure was repeated on 03/12/2021 with removal of 6700 mL of fluid. His other medical illnesses have been limited to coronary artery disease, atrial fibrillation, benign prostatic hypertrophy, and anxiety/depression. He is a non-smoker. He is seen for a follow-up visit. Subsequent to his initial visit, I had requested a genetic screening study, which came back negative. He has not been feeling good generally. He has very limited activity. ECOG score is 2. Appetite is not good, and he has early satiety. He has not had fever or night sweats. He has not been having nausea, he has had ongoing problems with constipation and with lower abdominal pain. He had severe pain yesterday after taking MiraLAX. He also has been having some acid reflux. He says his breathing is pretty good. He does have cough, and he does not complain of shortness of breath or chest pain. He has some hesitancy with urination, but bladder function remains adequate. He has no significant joint or bone pain. He is sometimes lightheaded. He does not complain of headache, and he has no focal neurologic symptoms. Medications: Doxazosin Mesylate Tablet Oral, Famotidine (40 mg/5mL) Suspension, when reconstituted Oral daily, HYDROcodone-Acetaminophen (7.5-325 mg) Tablet Oral t.i.d. PRN, HYDROmorphone HCl (2 mg) Tablet Oral t.i.d. PRN, OxyCONTIN (10 mg) Tablet ER 12 HR Abuse-Deterrent Oral b.i.d. PRN, Pancrelipase (Lie-[id number]) (75678 Units) Tablet Oral ac (tid), Tadalafil Tablet Oral PRN Allergies: Penicillins and Steroids placed in Red Meat. Vital Signs: Performed on Mar 14, 2021 15:38 Height - 72.00 in Weight - 133.4 lbs (LOW) BSA - 1.79 sq.m BMI - 18.09 Temperature - 99.0 F (HIGH) Pulse - 63 /min Respiration - 18 /min BP - 107/68 mm(hg) O2 Sat - 99 % Pain - 8 Fatigue - 8 Physical Examination: Constitutional - He appears generally weak, Eyes - Sclerae nonicteric. Conjunctivae clear, ENMT - No lesions noted in the oral cavity, Hematologic/Lymphatic - No cervical, clavicular, or axillary adenopathy noted, Respiratory - Lungs are clear with good air movement bilaterally, Cardiovascular - Heart rhythm is regular. There is no murmur, gallop, or rub noted, Abdomen - Mildly distended and soft. Liver and spleen are not enlarged. There is no abdominal mass noted and there is no inguinal adenopathy, Extremities - Slight edema, Neurologic - No focal neurologic deficits noted. Lab/Imaging: Test performed on Feb 15, 2021 10:50 PT 14.80 SECONDS WBC 3.2 10 3/uL INR 1.13 RBC 3.40 10 6/uL HGB 10.7 g/dL HCT 31.7 % MCV 93.2 fL MCH 31.5 pg MCHC 33.8 g/dL RDW 13.2 % Platelet Count 177 10 3/cmm MPV 9.2 fL Neutrophils 2.62 10 3/uL Lymphocytes 0.3 10 3/uL Monocytes 0.3 10 3/uL Eosinophils 0.0 10 3/uL Basophils 0.0 10 3/uL Neutrophil % 80.9 % Lymphocyte % 9.6 % Monocyte % 8.3 % Eosinophil % 0.3 % Basophils % 0.3 % NRBC % 0 % Test performed on Feb 15, 2021 10:42 Sodium 131 mmol/L Potassium 3.6 mmol/L Chloride 94 mmol/L CO2 25 mmol/L Anion Gap 15.6 BUN 10 mg/dL Creatinine 0.8 mg/dL Cr Clearance (Est) 82.2700 mL/min Glucose 114 mg/dL Osmolality - Calculated 272 mOsm/kg Calcium 8.2 mg/dL Protein, Total 6.2 g/dL Albumin 3.7 g/dL Globulin 2.5 g/dL Bilirubin, Total 0.5 mg/dL ALT (SGPT) 14 U/L AST (SGOT) 19 U/L Alkaline Phosphatase 68 IU/L CA 19-9 824.9 U/mL CEA 9.3 ng/mL Problem List: 1. Adenocarcinoma involving the uncinate process of the pancreas, by clinical evaluation stage III (T4, N0, M0). 2. 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 3. Coronary artery disease. 4. History of atrial fibrillation. 5. Benign prostatic hypertrophy. 6. Anxiety/depression. 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 It was initially discovered as an incidental finding on PET/CT in May 2020 which was done for restaging of the base of tongue cancer, for which he had completed treatment in December 2019. The pancreatic cancer was deemed inoperable based on suspected involvement of the superior mesenteric artery and vein by ultrasound and CT. There was associated biliary stricture, for which he underwent placement of biliary stent. He then had treatment with 3 cycles of gemcitabine/nab-paclitaxel chemotherapy from 06/20 through 08/14/2020. His restaging CT scan unfortunately showed no evidence of response. During that time he experienced a significant decline in performance status, and he opted not to have any further treatment. During follow-up he has had recurrent ascites, requiring therapeutic paracentesis on 03/01/2021 and again on 03/12/2021. He has continued to have poor performance status. His overall prognosis is poor, though difficult to predict over the short-term, as he has no other obvious sites of metastatic involvement. He wishes to continue with symptomatic/supportive care. He is interested in look into the possibility of a palliative care program. We discussed the fact that my prognostic criteria, he would meet eligibility requirements for hospice, but that option he declines at this time. His main concern right now, other than the ascites, is his issues with constipation and abdominal pain. I suggested that he try Dulcolax suppositories. He is also given a prescription for lactulose to use as needed. Depending on how he responds, I may have him try Reglan. Signed By: Isiah Rodgers M.D. <<Signature on File>>
== END 2021-03-14 15:01 | disposition home or self-care (01) ==
LOC: ONCMED 03-18 08:06
PROVIDERS: PCP Family Medicine; Visit Provider Internal Medicine Medical Oncology
DX: C01 Malignant neoplasm of base of tongue (principal); C78.89 Secondary malignant neoplasm of other digestive organs; C78.6 Secondary malignant neoplasm of retroperitoneum and peritoneum; I25.10 Atherosclerotic heart disease of native coronary artery without angina pectoris; I48.91 Unspecified atrial fibrillation; N40.0 Benign prostatic hyperplasia without lower urinary tract symptoms; F41.9 Anxiety disorder, unspecified; F32.9 Major depressive disorder, single episode, unspecified; Z79.899 Other long term (current) drug therapy; Z92.21 Personal history of antineoplastic chemotherapy
CPT/HCPCS: 99214

== ENCOUNTER 2021-03-25 07:47 | Emergency (ER) | payer MEDICARE, SELFPAY ==
[2021-03-25 07:54] VITALS: BP 107/76; PULSE 62; RESP 18; O2SAT 100; BMI 17.3
--- NOTE | 2021-03-25 07:57 | ED_ITS ---
HPI - General Adult General: Chief complaint: General Medical Stated complaint: Weak, cant eat, Time Seen by Provider: 03/25/21 07:52 History of Present Illness: HPI narrative: This patient is a 70-year-old male who presents to the emergency department with complaint of constipation and nausea. Patient has a long history of pancreatic cancer and takes only fluids and feedings by PEG tube. Patient is unable to take p.o. Patient states for the past 5 days has not had any bowel movements. Has become nauseated. Patient states his feedings he can feel regurgitate up his throat. From his PEG tube. Patient states even his scheduled flushes with 400 cc of fluid causes regurgitation out. Will do medical evaluation treat as needed Onset (ago): day(s) Radiation: non-radiation Severity: moderate Associated symptoms: Reports nausea; Deny chest pain, dyspnea, headache(s), rash, palpitations or vomiting Review of Systems General: Reports: 10 or more systems reviewed and unremarkable except in HPI and below Const: Denies: fever(s), chills, body aches or fatigue Eyes: Denies: change in vision or blurry vision ENMT: Denies: throat pain, hoarseness or mouth pain Card: Denies: chest pain, palpitations, irregular heart rhythm, edema, swelling of feet/ankles or lightheadedness Resp: Denies: dyspnea, productive cough, non-productive cough, wheezing or pain on inspiration GI: Reports: nausea and constipation; Denies: abdominal pain or vomiting : Denies: flank pain, dysuria, urinary frequency, urinary urgency or urinary hesitancy Musc: Denies: neck pain, back pain, extremity pain, extremity swelling, joint pain, joint swelling, joint redness, joint warmth or limited range of motion Skin/Breast: Denies: rash, pruritus, erythema or skin tenderness Neuro: Denies: headache(s), numbness in extremities or weakness in extremities Psych: Denies: anxiety or depression PFSH ED PFSH: Medical History (Updated 03/25/21 @ 11:56 by Niko Joya MD) BPH loc w urin obs/LUTS History of atrial fibrillation Incomplete bladder emptying Neoplasm of uncertain behavior of hypopharynx Pancreatic cancer Surgical History H/O knee surgery H/O shoulder surgery Family History Father Hypertension Dementia Mother , AT AGE 89 Cancer BREAST Social History Smoking and tobacco status: never smoked Alcohol intake: never Adopted: No Caregiver/support person: No Lives independently: Yes Marital status: Current occupational status: retired and disabled History of recent travel: No Physical Exam Const: COMMON NORMALS: no acute distress, average body habitus, patient oriented x3, no limitations, healthy appearing and alert GENERAL APPEARANCE: frail appearing NUTRITIONAL APPEARANCE: cachectic HENMT: COMMON NORMALS: normocephalic, atraumatic, hearing grossly normal bilaterally, external ears normal, EAC's normal, TM's normal bilaterally, Normal external nose present, Normal nasal mucous membranes and turbinates present, moist oral mucous membranes, oropharynx normal, dentition normal and gingiva normal HEAD & SCALP: normocephalic and atraumatic NOSE: Normal external nose present and Normal nasal mucous membranes and turbinates present E XTERNAL EAR: Yes external ears normal EXTERNAL AUDITORY CANAL: EAC's normal TYMPANIC MEMBRANE: TM's normal bilaterally Neck/C-Spine: COMMON NORMALS: full ROM, no lymphadenopathy, supple, no meningeal signs, no JVD, Thyroid normal and No carotid bruits THYROID: Thyroid normal Chest: COMMONS NORMALS: normal inspection of the chest, normal palpation of entire chest wall, normal inspection of the breasts and normal palpation of the breasts Breast/axilla inspection: Yes normal inspection of the breasts BREAST/AXILLA PALPATION: Yes normal palpation of the breasts Resp: COMMON NORMALS: normal respiratory effort, No retractions, No use of accessory muscles, clear to auscultation bilaterally and percussion normal AUSCULTATION: clear to auscultation bilaterally PERCUSSION: percussion normal Cardio: COMMON NORMALS: no JVD, regular rate, regular rhythm, S1 normal heart sound present, S2 normal heart sound present, No gallops present (Cardio), No clicks present (Cardio), No murmurs present (Cardio), No rub (Cardio) and Peripheral pulses 2+ throughout RATE: regular rate RHYTHM: regular rhythm HEART SOUNDS: S1 normal heart sound present and S2 normal heart sound present PERIPHERAL PULSES: Peripheral pulses 2+ throughout GI: COMMON NORMALS: Normal to inspection, nondistended, normoactive bowel sounds present, Soft to palpation, non-tender, No hepatosplenomegaly present, no masses and no bruits PALPATION: Yes Soft to palpation and Yes No hepatosplenomegaly present : COMMON NORMALS: Yes no CVA tenderness BLADDER/KIDNEY EXAM: Yes no CVA tenderness Back/Pelvis: COMMON NORMALS: no CVA tenderness, thoracic and lumbar spine normal to inspection, no thoracic nor lumbar tenderness, thoraco-lumbar ROM normal and straight leg raise negative bilaterally Extremity: COMMON NORMALS: normal to inspection, full ROM, capillary refill normal, no joint enlargement, no clubbing, cyanosis or edema, no calf tenderness and no pedal edema Neuro: COMMON NORMALS: patient oriented x3 SENSORIUM/ORIENTATION: Yes alert MENINGEAL SIGNS: Yes no meningeal signs Course Reevaluation(s): Reevaluation #1: Chronic conditions appear to be stable. Patient has had no vomiting in the emergency department. Patient does have pancreatic cancer and is feeding via PEG tube. Patient has chronic constipation most likely related to his IV Dilaudid and p.o. Dilaudid he takes at home. Nausea improved with Reglan. Patient is to encourage p.o. fluids take Pedialyte via PEG tube. May mix 4 ounces of prune juice with 2 ounces of milk of magnesium +2 tablespoons of salted butter. He did a microwave and start her may push through PEG tube with appropriate amount of flushing behind the prune juice mixture. May do this twice a day. May also take 8.6 mg capsule of Senokot [id number]. May crush and dilute with water and serve. Via PEG PEG tube. Patient is to follow- up with PCP for other chronic conditions. Time: 11:52 Vital Signs: Vital signs: Vital Signs Pulse Rate 47 L 03/25/21 11:06 Respiratory Rate 15 03/25/21 10:00 Blood Pressure 114/64 03/25/21 11:06 Pulse Oximetry 99 03/25/21 11:06 MDM - General Adult MDM Narrative: Medical decision making narrative: Patient is to encourage p.o. fluids take Pedialyte via PEG tube. May mix 4 ounces of prune juice with 2 ounces of milk of magnesium +2 tablespoons of salted butter. He did a microwave and start her may push through PEG tube with appropriate amount of flushing behind the prune juice mixture. May do this twice a day. May also take 8.6 mg capsule of Senokot [id number]. May crush and dilute with water and serve. Via PEG PEG tube. Patient is to follow-up with PCP for other chronic conditions. Lab Data: Labs: Lab Results 03/25/21 03/25/21 Range/Units 08:11 08:17 WBC 3.4 L (4.0-10.0) 10^3/ uL RBC 3.74 L (4.1-5.3) 10^6/u L Hgb 11.6 L (11.7-16.6) g/dL Hct 33.6 L (42.0-52.0) % MCV 89.8 (80-94) fL MCH 31.0 (28.0-34.0) pg MCHC 34.5 (30.0-36.0) g/dL RDW 13.5 (12.1-15.1) % Plt Count 169 (130-400) 10^3/c mm MPV 9.1 (7.4-10.4) fL Neut % (Auto) 78.5 % Lymph % (Auto) 9.3 % Sioux % (Auto) 11.0 % Eos % (Auto) 0.6 % Baso % (Auto) 0.3 % Neut # (Auto) 2.70 (1.8-7.7) 10^3/u L Lymph # (Auto) 0.3 L (0.8-4.8) 10^3/u L Sioux # (Auto) 0.4 (0.2-0.9) 10^3/u L Eos # (Auto) 0.0 (0.0-0.8) 10^3/u L Baso # (Auto) 0.0 (0.0-0.1) 10^3/u L Nucleated RBC % (a uto) 0 % Nucleated RBCs # 0.0 /100WBC Sodium 127 L (136-145) mmol/L Potassium 3.5 (3.5-5.1) mmol/L Chloride 88 L (98-107) mmol/L Carbon Dioxide 25 (22-29) mmol/L Anion Gap 17.5 (5-19) BUN 13 (8-23) mg/dL Creatinine 0.8 (0.7-1.2) mg/dL GFR Calculation Not Reportable Glucose 102 (65-115) mg/dL Calculated Osmolal ity 264 L (285-295) mOsm/k g Calcium 8.6 (8.5-10.5) mg/dL Total Bilirubin 0.7 (0.15-1.2) mg/dL AST 22 (0-40) U/L ALT 19 (0-41) U/L Alkaline Phosphata se 142 H (40-130) IU/L Total Protein 6.4 L (6.6-8.7) g/dL Albumin 3.6 (3.5-5.2) g/dL Globulin 2.8 (1.3-4.6) g/dL Lipase 6 L (13-60) U/L Imaging Data^: KUB: Attestation: I personally reviewed and interpreted this imaging study as follows: My impression: Constipation present with nonspecific bowel gas Radiologist's impression: IMPRESSION: Biliary stent and gastrostomy tube present and appear in proper position. Ascites. No acute abnormality identified. Discharge Plan Discharge Patient Disposition: Home Clinical Impression: Constipation, Gastroesophageal reflux disease, Pancreatic cancer, Medication side effect Condition: Stable Prescriptions: No Action hydromorphone [Dilaudid] 2 mg tablet 2 mg feeding tube Q4H RF: 0 famotidine 40 mg/5 mL (8 mg/mL) suspension 40 mg feeding tube DAILY PRN (Reason: Indigestion) RF: 0 doxazosin 4 mg tablet 4 mg feeding tube BID RF: 0 Discharge Orders: Discharge ED (Routine); Ordered 03/25/21 Ordered By: Niko Joya Referrals: Michael Dumont MD [Primary Care Provider] - Discharge Diet: Advance as tolerated and Clear Liquid Discharge Activity: Resume usual activity Patient Instructions: Opioid Safety Activity Restrictions/Additional Instructions: Patient is to encourage p.o. fluids take Pedialyte via PEG tube. May mix 4 ounces of prune juice with 2 ounces of milk of magnesium +2 tablespoons of salted butter. He did a microwave and start her may push through PEG tube with appropriate amount of flushing behind the prune juice mixture. May do this twice a day. May also take 8.6 mg capsule of Senokot [id number]. May crush and dilute with water and serve. Via PEG PEG tube. Patient is to follow- up with PCP for other chronic conditions. Coding Level of Care Code ED Humanities Coordinator for Chg Fwd Exam Comprehensive
--- NOTE | 2021-03-25 07:57 | XR_ITS ---
WS: [id number] XR acute abdomen series [id number] REASON FOR EXAM: Abd Pain FINDINGS: Chemotherapy infusion port over the right chest with trans right subclavian vein central venous teo ter at the cavoatrial junction. Biliary stent with some narrowing in the central portion of the stent. Gastrostomy tube. Overall hazy density of the abdomen. Central positioning of the bowel loops. No evidence of bowel obs truction. No free air or retroperitoneal air. No mass or significant calcification. XR/XR acute abdomen series [id number] IMPRESSION: Biliary stent and gastrostomy tube present and appear in proper position. Ascites. No acute abnormality identified.
[2021-03-25 08:00] VITALS: BP 105/75; PULSE 55; O2SAT 100
[2021-03-25 08:16] LABS: Basophils % 0.3 %; Eosinophils % 0.6 %; Hematocrit 33.6 % (42.0-52.0); Hemoglobin 11.6 g/dL (11.7-16.6); Lymphocytes # 0.3 10^3/uL (0.8-4.8); Lymphocytes % 9.3 %; Mean Corpuscular HGB Conc 34.5 g/dL (30.0-36.0); Mean Corpuscular Volume 89.8 fL (80-94); Mean Platelet Volume 9.1 fL (7.4-10.4); Monocytes # 0.4 10^3/uL (0.2-0.9); Neutrophils % 78.5 %; Nucleated Red Blood Cells % 0 %; Platelet Count 169 10^3/cmm (130-400); Red Blood Count 3.74 10^6/uL (4.1-5.3); Red Cell Distribution Width 13.5 % (12.1-15.1); White Blood Count 3.4 10^3/uL (4.0-10.0)
[2021-03-25] MEDS: ondansetron 2 mg/ML SDV 2 mL 4 MG IVP (08:28)
[2021-03-25] MEDS: sodium chloride 0.9% 1,000 ML 999 ML IV (08:28)
[2021-03-25 09:36] LABS: Alanine Aminotransferase 19 U/L (0-41); Albumin Level 3.6 g/dL (3.5-5.2); Alkaline Phosphatase 142 IU/L (40-130); Anion Gap 17.5 (5-19); Aspartate Amino Transferase 22 U/L (0-40); Blood Urea Nitrogen 13 mg/dL (8-23); Calcium 8.6 mg/dL (8.5-10.5); Carbon Dioxide 25 mmol/L (22-29); Chloride 88 mmol/L (98-107); Globulin 2.8 g/dL (1.3-4.6); Glucose 102 mg/dL (65-115); Lipase 6 U/L (13-60); Osmolality Calculated 264 mOsm/kg (285-295); Potassium 3.5 mmol/L (3.5-5.1); Sodium 127 mmol/L (136-145); Total Bilirubin 0.7 mg/dL (0.15-1.2); Total Protein 6.4 g/dL (6.6-8.7)
[2021-03-25 10:00] VITALS: BP 118/69; PULSE 49; RESP 15; O2SAT 99
[2021-03-25] MEDS: ketorolac 30 mg/mL INJ 15 MG IVP (10:22)
[2021-03-25] MEDS: metoclopramide 5 mg/mL SDV 2 mL 10 MG IVP (10:25)
[2021-03-25 11:06] VITALS: BP 114/64; PULSE 47; O2SAT 99
[2021-03-25 11:55] VITALS: BP 130/70; PULSE 51; RESP 14; O2SAT 100
== END 2021-03-25 12:37 | disposition home or self-care (01) ==
PROVIDERS: Emergency Provider Emergency Medicine; PCP Family Medicine
DX: C25.9 Malignant neoplasm of pancreas, unspecified (principal); K59.00 Constipation, unspecified; K21.9 Gastro-esophageal reflux disease without esophagitis; T40.2X5A Adverse effect of other opioids, initial encounter
CPT/HCPCS: 74022; 80053; 83690; 85025; 96361; 96374; 96375; 99284; J1885; J2405; J2765; J7030

== ENCOUNTER → 2021-04-10 10:04 | Day surgery (SDC) | payer MEDICARE, SELFPAY ==
--- NOTE | 2021-04-10 07:18 | US_ITS ---
WS: [id number] ULTRASOUND-GUIDED PARACENTESIS CLINICAL INFORMATION: ascites COMPARISON: None. Procedure Informed consent: The risks, benefits, and alternatives of the procedure were discussed with the denis ent. Verbal and written consent was obtained. Timeout: A timeout was performed to confirm the correct patient, procedure, and site. Preparation: A suitable skin site was identified. The patient was prepped and draped in usual sterile fashion. Lidocaine 1% was used for local anesthesia. Catheter: 4 Mexican One-step Yueh catheter. Side: Left Lower quadrant. Fluid Volume: 6600 ml Color: Clear yellow DISPOSITION: Discarded safely. Complications: None. Patient disposition: Discharged from the department in stable condition. US/US paracentesis abd w [id number] IMPRESSION: Uncomplicated ultrasound-guided paracentesis. Removal of 6600 cc
[2021-04-10 10:36] VITALS: BP 122/77; PULSE 55; RESP 18; TEMP 36.8; O2SAT 100
[2021-04-10 11:03] LABS: INR 1.07 (0.8-1.2)
[2021-04-10 12:36] VITALS: BP 117/70; PULSE 53; RESP 18; O2SAT 100
== END ==
PROVIDERS: PCP Family Medicine; Visit Provider Internal Medicine Medical Oncology
DX: R18.8 Other ascites (principal)
CPT/HCPCS: 49083; 85610

== ENCOUNTER 2021-05-03 10:42 | Emergency (ER) | payer MEDICARE, SELFPAY ==
[2021-05-03 10:49] VITALS: BP 116/70; PULSE 62; RESP 15; TEMP 36.7; O2SAT 99; BMI 16.2
--- NOTE | 2021-05-03 10:52 | ED_ITS ---
HPI - General Adult General: Chief complaint: Recheck/Abnormal Lab/Rx Stated complaint: hospice pt Time Seen by Provider: 05/03/21 10:52 History of Present Illness: HPI narrative: Mr Pabon is a 70-year-old gentleman with significant past medical history of pancreatic cancer who is currently on hospice who presents emergency department for what unfortunately sounds like an issue with transportation. He was being moved to a halfway for hospice care which he has been on but now requires more constant care. Apparently the transport van declined to take him so 911 was called. Apparently the ambulance is unable to transport the patient directly to half-way facility so he was brought here. He has many chronic issues associated with his pancreatic cancer however denies any new symptoms. He does report moderate to severe intensity abdominal pain which is aching in quality which has been ongoing and he typically takes Dilaudid at home through PEG tube. He otherwise denies significant changes. There are no provoking, exacerbating, alleviating other factors. Supplemental information upon wifes arrival is that he is markedly weaker over the past few days. He was drinking electrolytes until a few days ago when she stopped him because she was concerned he was getting to much salt. Review of Systems General: Reports: 10 or more systems reviewed and unremarkable except in HPI and below Narrative: CONSTITUTIONAL: denies fever, positive for fatigue, weakness EYES - denies pain, denies loss of vision THROAT - denies sore throat. Positive for chronic difficulty swallowing. CARDIOVASCULAR - denies chest pain and palpitations RESPIRATORY - denies shortness of breath and cough GASTROINTESTINAL - chronic abdominal pain and nausea GENITOURINARY - denies dysuria or urinary frequency MUSCULOSKELETAL- denies deformity or pain SKIN - denies rashes or new changed skin lesions NEUROLOGIC - denies focal weakness or sensory changes HEMATOLOGIC/LYMPHATIC - denies easy bruising or lymphadenopathy. [facility] PFSH: Medical History BPH loc w urin obs/LUTS History of atrial fibrillation Incomplete bladder emptying Neoplasm of uncertain behavior of hypopharynx Pancreatic cancer Surgical History H/O knee surgery H/O shoulder surgery Family History Father Hypertension Dementia Mother , AT AGE 89 Cancer BREAST Social History Smoking and tobacco status: never smoked Alcohol intake: never Adopted: No Caregiver/support person: No Lives independently: Yes Marital status: Current occupational status: retired and disabled History of recent travel: No Physical Exam Narrative: EXAM NARRATIVE: GENERAL/CONSTITUTIONAL - chronically ill-appearing. No acute distress. Eyes - PERRL, no conjunctival injection ENMT - Atraumatic external nose and ears. dry mucous membranes NECK - supple. trachea midline CARDIOVASCULAR - regular rate and rhythm. RESPIRATORY -clear to auscultation bilaterally. No retractions or accessory muscle use. ABDOMEN/GI - moderately tender which patient reports is chronic. Nondistended. MSK - Extremities without obvious deformity or tenderness to palpation SKIN - Warm, Dry NEURO - alert and appropriately oriented. strength and sensation intact. Moves all extremities equally. Course ED course: - Patient seen and evaluated by me at bedside - Vitals signed obtained - Initial exam notable for no acute distress, reported baseline finding per patient. - BMP ordered and notable for hyponatremia - IV fluids given - Likely secondary to free water flushes with essentially no other oral intake and/or progression of underlying medical condition - Sad situation, discussed with patient and . Ultimately we agreed that hospitalization is not in the patient's best interest. - Symptoms improved with treatment. - Evaluation, increasing electrolyte intake, and other symptom cares discussed. return precautions given. - Patient satisfied and felt safe with discharge plan Vital Signs: Vital signs: Vital Signs Temperature 98.1 F 05/03/21 10:49 Pulse Rate 57 L 05/03/21 16:22 Respiratory Rate 15 05/03/21 17:54 Blood Pressure 133/72 05/03/21 16:22 Pulse Oximetry 100 05/03/21 17:54 MDM - General Adult Medical Records: Attestation: I reviewed the patient's medical records. Lab Data: Attestation: I reviewed the patient's lab results. Labs: Lab Results 05/03/21 Range/Units 13:49 Sodium 124 L (136-145) mmol/L Potassium 4.9 (3.5-5.1) mmol/L Chloride 93 L (98-107) mmol/L Carbon Dioxide 21 L (22-29) mmol/L Anion Gap 14.9 (5-19) BUN 46 H (8-23) mg/dL Creatinine 0.7 (0.7-1.2) mg/dL GFR Calculation Not Reportable Glucose 47 L (65-115) mg/dL Calculated Osmolal ity 267 L (285-295) mOsm/k g Calcium 7.9 L (8.5-10.5) mg/dL Discharge Plan Discharge Patient Disposition: er [facility] Clinical Impression: Neoplasm of uncertain behavior of hypopharynx, Pancreatic cancer, Weakness, Hyponatremia, Hospice care Condition: Stable Discharge Orders: Discharge ED (Routine); Ordered 05/03/21 Ordered By: Bruce Noel Referrals: Michael Dumont MD [Primary Care Provider] - Discharge Diet: Usual diet Discharge Activity: Resume usual activity Patient Instructions: Hyponatremia (ED) Activity Restrictions/Additional Instructions: Thank you for visiting the emergency department. You were seen and evaluated for concern of her electrolyte abnormalities. Your sodium continues to be low. It is possible that this is due to to too much free water flushes given via G- tube. If you have normal oral intake the 400 mL 3 times daily may be appropriate however without any ingestion of electrolytes such as Pedialyte this can cause low sodium. If appropriate this should be titrated and labs should be rechecked. Please return to the emergency department for anything that you are concerned about and feel needs emergency department evaluation. Coding Level of Care Code ED Spar Machine Operator Helper for Regina Walters
[2021-05-03] MEDS: lactated ringers 1,000 ML 999 ML IV (13:47)
[2021-05-03 14:19] LABS: Anion Gap 14.9 (5-19); Blood Urea Nitrogen 46 mg/dL (8-23); Calcium 7.9 mg/dL (8.5-10.5); Carbon Dioxide 21 mmol/L (22-29); Chloride 93 mmol/L (98-107); Creatinine Clr Calc Pharmacy 65.2038; Glucose 47 mg/dL (65-115); Osmolality Calculated 267 mOsm/kg (285-295); Potassium 4.9 mmol/L (3.5-5.1); Sodium 124 mmol/L (136-145)
[2021-05-03] MEDS: dextrose 50% syringe 50 mL IVP (16:20)
[2021-05-03 16:22] VITALS: BP 133/72; PULSE 57; RESP 15; O2SAT 98
[2021-05-03 17:54] VITALS: RESP 15; O2SAT 100
== END 2021-05-03 17:55 ==
PROVIDERS: Emergency Provider Emergency Medicine; PCP Family Medicine
DX: E87.1 Hypo-osmolality and hyponatremia (principal); D37.05 Neoplasm of uncertain behavior of pharynx; C25.9 Malignant neoplasm of pancreas, unspecified; R53.1 Weakness
CPT/HCPCS: 80048; 96361; 96374; 96375; 99284